=== PATIENT | female | born 1960 | race Caucasian/White ===

== ENCOUNTER 2025-06-25 13:09 | Inpatient (IN) ==
--- NOTE | 2025-06-25 13:40 | Emergency Department Note ---
History of Present Illness General Chief complaint: Weakness Stated complaint: CAN'T SUPPORT HERSELF "IT'S LIKE I'M DRUNK" Time Seen by Provider: 06/25/25 13:27 History of Present Illness This is a 64-year-old female who presents to the emergency department via private vehicle accompanied by with complaints of "weakness, cannot support self". The patient states that this is approximately the fourth time she has experienced the exact same symptoms. Most recently began this morning at 7:30 AM. She notes she cannot move her legs at all, and can barely move her head/neck. However her arms do fully work. She denies any trauma or injury. She denies any fevers, chills, nausea or vomiting. She denies any chest pain or shortness of breath. She does note recent diagnosis of diabetes about 6 months ago. She also notes history of stroke around age 51. 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 02/12/25 05/25/25 History (Dexcom G7 [place] Superintendent) lamotrigine 250 mg tablet,extended 250 mg PO BID 02/12/25 06/25/25 History release 24 hr losartan 50 mg tablet 100 mg PO DAILY 02/12/25 06/25/25 History rosuvastatin 20 mg tablet (Crestor) 0 mg PO DAILY 02/12/25 06/25/25 History insulin glargine 100 unit/mL (3 0 unit subcut QAM 02/19/25 06/25/25 History mL) subcutaneous pen (Lantus Solostar U-100 Insulin) levothyroxine 75 mcg tablet 88 mcg PO DAILY 02/19/25 06/25/25 History insulin pump cart,auto,BT,G6/7 #10 ea 04/09/25 05/25/25 Rx (Omnipod 5 G6-G7 Pods (Gen 5) subcutaneous cartridge) insulin pump cartridge,auto #1 ea 04/09/25 05/25/25 Rx dose,BT,G6/G7 with controller subcutaneous (Omnipod 5 G6-G7 Intro Kit(Gen 5) subcutaneous cartridge and controller) glucagon 1 mg/0.2 mL subcutaneous 1 mg (0.2 mL) subcut ONCE #0.4 mL 05/06/25 06/25/25 Rx auto-injector (Gvoke HypoPen 2-Pack) acetone (urine) test (Ketone Urine #100 ea 05/25/25 05/25/25 Rx Test strips) clobazam 20 mg tablet 25 mg PO HS 05/25/25 06/25/25 History insulin lispro 100 unit/mL 44 unit (0.44 mL) subcut DAILY #40 06/16/25 06/25/25 Rx subcutaneous solution (Humalog mL U-100 Insulin) insulin lispro 100 unit/mL 0 unit subcut TID 06/25/25 06/25/25 History subcutaneous half-unit pen (Humalog Jori KwikPen (U-100)) Allergies Allergy/AdvReac Type Severity Reaction Status Date / Time Sulfa (Sulfonamide Allergy Severe Anaphylaxis Verified 05/25/25 16:20 Antibiotics) Past Med/Surg History Problem List (Updated 06/25/25 @ 20:09 by Jaya Tse PA-C) Weakness (Acute) Chronic kidney disease, stage 3b Hypertension Hypothyroidism Hyperlipidemia Type 1 diabetes mellitus Social History Beliefs That Will Affect Care: [employer] Feels Safe at Home: Yes Review of Systems A total of 10 systems reviewed and were otherwise negative Physical Exam Vital Signs Vital Signs - 24 hr 06/25/25 13:14 06/25/25 13:29 06/25/25 14:00 Temperature 36.5 C Temperature Source Temporal Artery Scan Pulse Rate 69 65 Pulse Rate [Left Finger] 58 L Respiratory Rate 18 20 Respiratory Effort / Characteristics Non-Labored Respiratory Depth Normal Blood Pressure 177/96 H Blood Pressure [Left Arm] 186/92 H Blood Pressure Mean 123 Blood Pressure Mean [Left Arm] 123 Pulse Oximetry 99 99 Oxygen Delivery Method Room Air Sepsis Recent Fever Within 48 Hours No Sepsis New/Unexplained Change in Mental Status No Sepsis Action Taken by Nursing No Action Required VITAL SIGNS - Vital signs and nursing notes were reviewed. Stable and afebrile. GENERAL -64-year-old female appearing his stated age who is in no acute distress. Communicates well with provider and answers questions appropriately. SKIN - Without rashes. HEAD - NC/AT. EYES - PERRL with EOMI bilaterally. Sclera anicteric. EARS - No deformities of external structures noted on gross examination bilaterally. External auditory canals without discharge or otorrhea. Tympanic membranes pearly cao without retraction or bulging. No fluid or purulent material visualized behind the TM. Handle of malleus, umbo, cone of light, pars tensa/flaccid all easily visualized. NOSE - Midline and without cyanosis. No epistaxis or purulent drainage noted. Septum midline without deviation or septal hematoma noted. MOUTH/OROPHARYNX - Without perioral cyanosis. Buccal mucosa pink and moist and without leukoplakia. Tongue midline with equal elevation of palate bilaterally. No tonsillar hypertrophy, erythema, or exudates noted. Good dentition noted. NECK -the patient is only able to minimally actively turn the head left and right. Minimally look up and down with head tilt. No nuchal rigidity. LUNGS - Chest wall symmetric without accessory muscle use, intercostals retractions, or central cyanosis. Normal vesicular breath sounds CTA B/L. No wheezes, rales, or rhonchi appreciated. CARDIAC - RRR with S1/S2. No murmur, rubs, or gallops appreciated. ABDOMEN - Abdominal contour normal without pulsations or visible masses. BS normoactive all four quadrants. No tenderness, palpable masses, hepatosplenomegaly, or ascites noted. EXTREMITIES - No clubbing or peripheral cyanosis. Patient's extremities are appropriately warm and well-perfused. However she is not able to move the lower extremities at all. She has full range of the upper extremities. Pulses intact bilaterally. NEUROLOGIC - Cranial nerves II through XII grossly intact. PSYCH -alert, oriented and pleasant on exam Course Administered Medications Discontinued Medications Ioversol (Optiray 320 125ml) 115 ml IV ONCE ONE Stop: 06/25/25 13:48 Last Admin: 06/25/25 13:47 Dose: 115 ml Documented By: RENAE Medical Decision Making Laboratory Data 06/25/25 13:34 06/25/25 13:34 Lab Results 06/25/25 06/25/25 06/25/25 Range/Units 13:15 13:34 14:51 WBC 5.35 (4.8-10.8) K/ul RBC 5.16 (4.20-5.40) M/uL Hgb 16.0 (12.0-16.0) g/dL Hct 45.6 (37.0-47.0) % MCV 88.4 (80.0-100.0) fL MCH 31.0 (25.0-34.0) pg MCHC 35.1 (32.0-36.0) g/dL RDW Std Deviation 41.8 (36.4-46.3) fL RDW Coeff of Ramandeep 12.9 (11.5-14.5) % Plt Count 237 (130-400) K/uL MPV 8.8 L (9.4-12.4) fL Immature Gran % (Auto) 0.2 % Neut % (Auto) 45.4 % Lymph % (Auto) 46.4 % Cross % (Auto) 5.4 % Eos % (Auto) 1.7 % Baso % (Auto) 0.9 % Neut # (Auto) 2.43 (1.40-6.50) K/uL Lymph # (Auto) 2.48 (1.20-3.40) K/uL Cross # (Auto) 0.29 (0.11-0.59) K/uL Eos # (Auto) 0.09 (0.00-0.50) K/uL Baso # (Auto) 0.05 (0.00-0.20) K/uL Immature Gran # (Auto) 0.01 (0.01-0.20) K/uL PT 10.5 (9.0-12.0) Seconds INR 1.0 (0.9-1.1) APTT 31 (21-31) Seconds PTT Ratio 1.1 Sodium 140 (136-145) mmol/L Potassium 3.3 L (3.5-5.1) mmol/L Chloride 98 (98-107) mmol/L Carbon Dioxide 33 H (21-32) mmol/L Anion Gap 9 (3-11) BUN 13 (6-23) mg/dl Creatinine 1.20 (0.6-1.2) mg/dl Est Cr Clr Drug Dosing Not Reportable eGFR 50.86 BUN/Creatinine Ratio 10.8 (10-20) Glucose 119 H (70-99(Fasting)) mg/dl POC Glucose 102 H (70-99) mg/dl Calcium 9.3 (8.6-10.3) mg/dl Magnesium 2.8 H (1.7-2.4) mg/dl Total Bilirubin 0.6 (0.2-1.0) mg/dl AST 18 (13-39) U/L ALT 17 (7-52) U/L Alkaline Phosphatase 80 (34-104) U/L Troponin I High Sens 4.0 (0-14) pg/ml Total Protein 8.3 (6.0-8.3) gm/dl Albumin 5.0 (3.4-5.0) gm/dl Globulin 3.3 (2.5-4.0) gm/dl Albumin/Globulin Ratio 1.5 (0.9-2) Lipase 15 (11-82) U/L Procalcitonin < 0.02 (0-0.5) ng/ml TSH 4.092 (0.300-4.500) uIu/ml Urine Color Yellow Urine Appearance Clear (Clear) Urine pH 8.0 H (4.5-7.5) Ur Specific Everson 1.013 (1.000-1.030) Urine Protein Negative (Negative) Urine Glucose (UA) Negative (Negative) Urine Ketones Negative (Negative) Urine Blood Negative (Negative) Urine Nitrite Negative (Negative) Urine Bilirubin Negative (Negative) Urine Urobilinogen Negative (Negative) Ur Leukocyte Esterase Negative (Negative) Urine Comment Anaplasma Smear See Comment Babesia Smear See Comment Lyme Disease Screen Negative (Negative) Imaging Data Radiologist's Impression: Chest X-Ray 06/25/25 13:31 XR chest 1V portable HISTORY: 64 years-old Female weakness acute weakness COMPARISON: None TECHNIQUE: AP view of the chest FINDINGS: Cardiomediastinal and hilar silhouettes are within normal limits. No pneumothorax, pleural effusion, airspace consolidation or pulmonary edema. Bones of the chest appear grossly intact. IMPRESSION: No acute process. ACT 112: Negative or not required by law. The above report was generated using voice recognition software. It may contain grammatical, syntax or spelling errors. Electronically signed by: Adilson Saab M.D. 06/25/2025 2:[address] 06/25/25 13:38 CT head/brain wo con CLINICAL HISTORY: 64 years-old Female with neuro deficit, acute stroke suspected. Acute stroke like symptoms TECHNIQUE: Multiple axial CT images of the head were obtained without contrast. A dose lowering technique was utilized adhering to the principles of ALARA. COMPARISON: CTA head same day FINDINGS: No acute intracranial hemorrhage, midline shift, intracranial mass, hydrocephalus, territorial ischemia or abnormal extra-axial collection. Involutional changes. Large area of right MCA distribution encephalomalacia with right-sided craniotomy changes. Trace mastoid effusions. Mild mucosal thickening of the ethmoid air cells. IMPRESSION: 1. No acute intracranial abnormality. 2. 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 ACT 112: Negative or not required by law. The above report was generated using voice recognition software. It may contain grammatical, syntax or spelling errors. Electronically signed by: Adilson Saab M.D. 06/25/2025 2:11 PM Head CTA 06/25/25 13:38 CTA ANGIOGRAPHY OF THE HEAD CLINICAL HISTORY: neuro deficit, acute stroke suspected COMPARISON STUDY: No previous studies for comparison. TECHNIQUE: Helical axial images of the head were obtained following uneventful intravenous administration of 115 cc of Optiray. Sagittal and coronal reconstructions were viewed as well as maximal intensity projections on an independent 3-D workstation. Automated exposure control was utilized for the study. A dose lowering technique was utilized adhering to the principles of ALARA. CT DOSE: 927.13 mGy.cm FINDINGS: Please note that the head CT will be reported separately. No acute intracranial hemorrhage is present. A right sided craniotomy is noted with right temporal encephalomalacia. Associated dilatation of the right lateral ventricle is noted. These findings are chronic. The bilateral M1, M2, A1 and A2 segments are patent. There is moderate stenosis of the right supraclinoid ICA as well as the basilar artery. No large vessel occlusion is identified. The intracranial portions of the vertebral arteries are patent. The bilateral posterior cerebral artery are patent. There is no intracranial aneurysm. IMPRESSION: 1. No large vessel occlusion. No intracranial aneurysm. 2. Moderate stenosis of the right supraclinoid internal carotid and basilar arteries. 3. Status post right craniotomy. Right temporal lobe encephalomalacia with associated dilatation of the right lateral ventricle which is chronic. ACT 112: Negative or not required by law. Electronically signed by: Brandon Almeida M.D. 06/25/2025 2:12 PM Neck CTA 06/25/25 13:38 CT ANGIOGRAPHY OF THE NECK WITH CONTRAST CLINICAL HISTORY: neuro deficit, acute stroke suspected COMPARISON STUDY: No previous studies for comparison. Technique: CT angiography of the carotid and vertebral arteries was obtained using 115 cc Optiray and 3D reconstruction on an independent workstation. NASCET criteria was utilized. Automated exposure control was utilized for the study. A dose lowering technique was utilized adhering to the principles of ALARA. CT DOSE: Findings: The lung apices are unremarkable in appearance. No significant thyroid tissue is visualized. There is no pathologic neck adenopathy. There is an opacified right ethmoid air cell. There are postsurgical changes present within the right temporal lobe with right temporal lobe encephalomalacia There is no evidence of hemodynamically significant carotid stenosis. There is no evidence of carotid dissection. On image #[id number], hyperdense focus adjacent the medial aspect of the left vertebral artery at the C5-6 level. This is favored to represent a small osteophytic bone fragment as opposed to a short segment dissection. There is mild deformity of the vertebral at this level. Otherwise there is no evidence of vertebral artery stenosis or other findings to indicate dissection. There is a 50% stenosis of the mid basilar artery. IMPRESSION: 1. No evidence of carotid artery stenosis or dissection 2. 50% stenosis of the mid basilar artery 3. Double lumen appearance of the left vertebral artery at the C5-C6 level as visualized image #[id number]. A deformity of the vertebral artery secondary to an osteophytic fragment is favored over a short segment dissection. ACT 112: Negative or not required by law. Electronically signed by: Antwan Ivory M.D. 06/25/2025 2:20 PM MDM Narrative Patient was seen and evaluated as above in room B12b. Review was performed of nursing notes and vital signs. I did review the patient's outpatient endocrinology visit. No recent ED visits here for eval. After obtaining a thorough history and physical examination the above work up was performed. Patient presents to us today with the above symptoms. The patient is unable to move her lower extremities actively. Minimal range of head and neck actively as well. Full range of the upper extremities. Patient has history of stroke she notes around age 51. Stroke alert was called noting her deficits today although they are bilateral. CT angio head and neck with Noncon head CT also obtained, I reviewed benefit versus with the patient we will proceed. 1347: I spoke with Gregoria Mcdermott telestroke neurologist. He will evaluate the patient. He will call back with his recommendations 1414: Dr. Ward called back, cord compression or GB until proven otherwise. MRI whole spine, non contrast TODAY. Brain MRI as well. LP may be considered if needed. I did call MRI and spoke to mammography technologist to prioritize the patient. We will be able to obtain MRI of the head, C, T and L-spine today. 1427: Bladder scan performed patient retaining greater than 800 cc. Urinary retention noted. Ridley catheter will be placed. Plan at this time is medical admission. I spoke with Dr. Mccormack, hospitalist. He did asked that I speak with the spine team, I spoke with BEN Morrissey at 1503. They are willing to be on board/help if we find a spine process. Labs reveal no leukocytosis or concerning anemia. Coags normal. Mild hypokalemia 3.3. Hyperglycemia 119. Hypermagnesemia 2.8. Troponin within normal range. Lipase, Pro-Cecilio TSH normal. Urinalysis without clear evidence of infection. Anaplasma and Babesia smear negative. Lyme screen negative. Babesia DNA test pending. EKG per my interpretation reveals normal sinus rhythm at a rate of 66 bpm. QTc 461. QRS 94. No ST elevation on this rhythm tracing. GCS: 15 In the evaluation and treatment of this patient the following differential diagnoses were entertained: CVA, TIA, cord compression, gonorrhea, among others Impression & Plan Weakness Discharge Plan Visit Data Chief Complaint: Weakness Stated Complaint: CAN'T SUPPORT HERSELF "IT'S LIKE I'M DRUNK" ED Provider: Sam Cedeno ED Midlevel Provider: Jaya Tse Discharge Problem: Weakness Patient Disposition: Admitted As Inpatient Condition: Good Discharge Instructions Interventions: ED Discharge Assessment Last Done: 06/25/25 18:35
[2025-06-25 13:47] LABS: Hematocrit (blood only) 45.6 % (37.0-47.0); Hemoglobin 16.0 g/dL (12.0-16.0); Immature Granulocytes # (auto) 0.01 K/uL (0.01-0.20); Immature Granulocytes % (auto) 0.2 %; Mean Corpuscular Hemoglobin 31.0 pg (25.0-34.0); Mean Corpuscular Volume 88.4 fL (80.0-100.0); Platelet Count 237 K/uL (130-400); RDW Standard Deviation 41.8 fL (36.4-46.3); Red Blood Count 5.16 M/uL (4.20-5.40); White Blood Count 5.35 K/ul (4.8-10.8)
[2025-06-25] MEDS: OPTIRAY 320 125ml IV ONE (13:47)
[2025-06-25 14:09] LABS: Alanine Aminotransferase 17 U/L (7-52); Albumin Globulin Ratio 1.5 (0.9-2); Albumin Level 5.0 gm/dl (3.4-5.0); Alkaline Phosphatase 80 U/L (34-104); Anion Gap 9 (3-11); Bilirubin,Total 0.6 mg/dl (0.2-1.0); Blood Urea Nitrogen 13 mg/dl (6-23); Calcium 9.3 mg/dl (8.6-10.3); Carbon Dioxide 33 mmol/L (21-32); Chloride 98 mmol/L (98-107); Globulin 3.3 gm/dl (2.5-4.0); Glucose 119 mg/dl (70-99(Fasting)); Lipase 15 U/L (11-82); Magnesium 2.8 mg/dl (1.7-2.4); Potassium 3.3 mmol/L (3.5-5.1); Sodium 140 mmol/L (136-145); Total Protein 8.3 gm/dl (6.0-8.3)
[2025-06-25 14:13] LABS: Procalcitonin < 0.02 ng/ml (0-0.5)
--- NOTE | 2025-06-25 14:13 | CT Scan Report ---
CT head/brain wo con CLINICAL HISTORY: 64 years-old Female with neuro deficit, acute stroke suspected. Acute stroke like symptoms TECHNIQUE: Multiple axial CT images of the head were obtained without contrast. A dose lowering tech nique was utilized adhering to the principles of ALARA. COMPARISON: CTA head same day FINDINGS: No acute intracranial hemorrhage, midline shift, intracranial mass, hydrocephalus, territorial ischem ia or abnormal extra-axial collection. Involutional changes. Large area of right MCA distribution enc ephalomalacia with right-sided craniotomy changes. Trace mastoid effusions. Mild mucosal thickening of the ethmoid air cells. IMPRESSION: 1. No acute intracranial abnormality. 2. 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 ACT 112: Negative or not required by law. The above report was generated using voice recognition software. It may contain grammatical, syntax o r spelling errors. Electronically signed by: Adilson Saab M.D. 06/25/2025 2:11 PM
--- NOTE | 2025-06-25 14:13 | CT Scan Report ---
CTA ANGIOGRAPHY OF THE HEAD CLINICAL HISTORY: neuro deficit, acute stroke suspected COMPARISON STUDY: No previous studies for comparison. TECHNIQUE: Helical axial images of the head were obtained following uneventful intravenous administr ation of 115 cc of Optiray. Sagittal and coronal reconstructions were viewed as well as maximal inten sity projections on an independent 3-D workstation. Automated exposure control was utilized for the study. A dose lowering technique was utilized adhering to the principles of ALARA. CT DOSE: 927.13 mGy.cm FINDINGS: Please note that the head CT will be reported separately. No acute intracranial hemorrhage is present. A right sided craniotomy is noted with right temporal encephalomalacia. Associated dilata tion of the right lateral ventricle is noted. These findings are chronic. The bilateral M1, M2, A1 an d A2 segments are patent. There is moderate stenosis of the right supraclinoid ICA as well as the bas ilar artery. No large vessel occlusion is identified. The intracranial portions of the vertebral amaya stiven are patent. The bilateral posterior cerebral artery are patent. There is no intracranial aneurys m. IMPRESSION: 1. No large vessel occlusion. No intracranial aneurysm. 2. Moderate stenosis of the right supraclinoid internal carotid and basilar arteries. 3. Status post right craniotomy. Right temporal lobe encephalomalacia with associated dilatation of t he right lateral ventricle which is chronic. ACT 112: Negative or not required by law. Electronically signed by: Brandon Almeida M.D. 06/25/2025 2:12 PM
[2025-06-25 14:20] LABS: INR 1.0 (0.9-1.1); Partial Thromboplastin Time 31 Seconds (21-31); Prothrombin Time 10.5 Seconds (9.0-12.0)
--- NOTE | 2025-06-25 14:21 | CT Scan Report ---
CT ANGIOGRAPHY OF THE NECK WITH CONTRAST CLINICAL HISTORY: neuro deficit, acute stroke suspected COMPARISON STUDY: No previous studies for comparison. Technique: CT angiography of the carotid and vertebral arteries was obtained using 115 cc Optiray and 3D reconstruction on an independent workstation. NASCET criteria was utilized. Automated exposure c ontrol was utilized for the study. A dose lowering technique was utilized adhering to the principles of ALARA. CT DOSE: Findings: The lung apices are unremarkable in appearance. No significant thyroid tissue is visualized. There is no pathologic neck adenopathy. There is an opacified right ethmoid air cell. There are postsurgical changes present within the right temporal lobe with right temporal lobe enceph alomalacia There is no evidence of hemodynamically significant carotid stenosis. There is no evidence of carotid dissection. On image #[id number], hyperdense focus adjacent the medial aspect of the left vertebral art norbert at the C5-6 level. This is favored to represent a small osteophytic bone fragment as opposed to a short segment dissection. There is mild deformity of the vertebral at this level. Otherwise there is no evidence of vertebral artery stenosis or other findings to indicate dissection. There is a 50% stenosis of the mid basilar artery. IMPRESSION: 1. No evidence of carotid artery stenosis or dissection 2. 50% stenosis of the mid basilar artery 3. Double lumen appearance of the left vertebral artery at the C5-C6 level as visualized image #[id number]. A deformity of the vertebral artery secondary to an osteophytic fragment is favored over a short segment dissection. ACT 112: Negative or not required by law. Electronically signed by: Antwan Ivory M.D. 06/25/2025 2:20 PM
[2025-06-25 14:24] LABS: Thyroid Stimulating Hormone 4.092 uIu/ml (0.300-4.500)
[2025-06-25 14:38] LABS: Lyme Screen Rflx Confirmation Negative (Negative)
--- NOTE | 2025-06-25 14:53 | XRay Report ---
XR chest 1V portable HISTORY: 64 years-old Female weakness acute weakness COMPARISON: None TECHNIQUE: AP view of the chest FINDINGS: Cardiomediastinal and hilar silhouettes are within normal limits. No pneumothorax, pleural effusion, airspace consolidation or pulmonary edema. Bones of the chest appear grossly intact. IMPRESSION: No acute process. ACT 112: Negative or not required by law. The above report was generated using voice recognition software. It may contain grammatical, syntax o r spelling errors. Electronically signed by: Adilson Saab M.D. 06/25/2025 2:52 PM
[2025-06-25 15:07] LABS: Appearance Urine Clear (Clear); Glucose Urine UA Negative (Negative)
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
--- NOTE | 2025-06-25 15:33 | Electrocardiogram Report ---
Test Reason : Blood Pressure : */* mmHG Vent. Rate : 66 BPM Atrial Rate : 66 BPM P-R Int : 164 ms QRS Dur : 94 ms QT Int : 440 ms P-R-T Axes : 79 85 67 degrees QTcB Int : 461 ms Normal sinus rhythm Possible Left atrial enlargement Septal infarct , age undetermined Abnormal ECG No previous ECGs available Confirmed by Rolando King ([id number]) on 06/25/2025 3:33:07 PM Referred By: Confirmed By: Rolando King
[2025-06-25] MEDS ORDERED: PHARMACY GLYCEMIC MGMT CONSULT PRN (15:43)
[2025-06-25] MEDS ORDERED: ZOLPIDEM TARTRATE 5 MG TAB PO PRN (19:11)
[2025-06-25] MEDS ORDERED: ALUMINUM/MAGNESIUM SUSP 30 ML UDC PO PRN (19:11)
[2025-06-25] MEDS ORDERED: ONDANSETRON INJ 2 MG/ML 2 ML VIAL IV PRN (19:11)
[2025-06-25] MEDS ORDERED: ACETAMINOPHEN 325 MG TAB PO PRN (19:11)
--- NOTE | 2025-06-25 20:19 | Magnetic Resonance Report ---
Exam(s): MRI L SPINE Without Contrast EXAM: MR Lumbar Spine Without Intravenous Contrast CLINICAL HISTORY: Reason for exam: cannot move head, neck or legs, weakness. TECHNIQUE: Magnetic resonance images of the lumbar spine without intravenous contrast in multiple planes. COMPARISON: No relevant prior studies available. FINDINGS: There is normal lumbar lordosis and vertebral body height. There is no acute fracture or traumatic subluxation. There is no discitis. Small benign intraosseous hemangiomas are noted at the L1, L2, and L3 levels. Conus medullaris terminates opposite L1 and is normal in caliber and signal. There is multilevel disc desiccation and disc degeneration with disc height loss greatest at the L4-L5 level. There is multilevel facet degeneration. L1-L2: Mild disc degeneration. Facet degeneration. No spinal canal stenosis. No significant foraminal narrowing. L2-L3: Mild disc degeneration. Marked facet degeneration with ligamentum flavum thickening. Grade 1 anterolisthesis of L2 measuring 3 mm. Moderate spinal canal stenosis with narrowing of the lateral recesses and disc material abutting the bilateral traversing L3 nerve roots. Severe left and [id number] right foraminal narrowing. L3-L4: Mild disc degeneration. Marked facet degeneration. Mild canal stenosis with narrowing of the lateral recesses and disc material abutting the traversing bilateral L4 nerve roots. Severe bilateral foraminal narrowing, right worse than left. L4-L5: Moderate disc degeneration. Disc bulging. Marked facet degeneration. No significant spinal canal stenosis. Moderate bilateral foraminal narrowing. L5-S1: Mild disc degeneration. Facet degeneration. No spinal canal stenosis. Mild bilateral foraminal narrowing. Sacroiliac joints are normally aligned. Paravertebral soft tissues are unremarkable. IMPRESSION: 1. Multilevel degenerative changes without acute osseous abnormality. 2. Varying degrees of spinal canal stenosis, moderate at L2-L3. 3. Severe left foraminal narrowing L2-L3, severe bilateral foraminal narrowing L3-L4, moderate bilateral foraminal narrowing L4-L5. 4. Additional uricy-rj-[id number] findings as noted above. Electronically signed by: Kim Us M.D. 06/25/25 20:18 PM
[2025-06-25] MEDS ORDERED: GLUCOSE 10 TAB/TUBE PO PRN (20:45)
[2025-06-25] MEDS ORDERED: GLUCAGON FOR INJ 1 MG VIAL SQ PRN (20:45)
[2025-06-25] MEDS ORDERED: DEXTROSE 50% 50 ML SYRINGE IV PRN (20:45)
[2025-06-25] MEDS ORDERED: GLUCOSE 40% GEL 15 GM TUBE PO PRN (20:45)
[2025-06-25] MEDS ORDERED: LANTUS PER UNIT CHARGE SQ SCH (21:00)
--- NOTE | 2025-06-25 21:29 | Magnetic Resonance Report ---
Exam(s): MRI T SPINE Without Contrast EXAM: MR Thoracic Spine Without Intravenous Contrast CLINICAL HISTORY: Reason for exam: cannot move head, neck or legs, weakness. TECHNIQUE: Magnetic resonance images of the thoracic spine without intravenous contrast in multiple planes. COMPARISON: No relevant prior studies available. FINDINGS: Vertebrae: Unremarkable. No acute fracture. Discs/spinal canal/neural foramina: No acute findings. No significant disc disease. No spinal canal stenosis. Spinal cord: Unremarkable. Normal signal. Soft tissues: Unremarkable. IMPRESSION: Unremarkable thoracic spine MRI. Electronically signed by: Kim Us M.D. 06/25/25 21:28 PM
--- NOTE | 2025-06-25 21:46 | Magnetic Resonance Report ---
Exam(s): MRI HEAD Without Contrast EXAM: MR Head Without Intravenous Contrast CLINICAL HISTORY: Reason for exam: cannot move head, neck or legs, weakness. TECHNIQUE: Magnetic resonance images of the head/brain without intravenous contrast in multiple planes. COMPARISON: CT, CTA 06/25/2025 FINDINGS: There is a right-sided craniotomy with resection cavity in the right temporal lobe and surrounding gliosis, associated with ex vacuo enlargement of the right lateral ventricle. There is no mass effect or midline shift. There is no diffusion restriction to suggest acute cerebral ischemia. There are no significant chronic small-vessel ischemic changes. There is no evidence of acute intracranial hemorrhage. There is no hydrocephalus. There is mucosal thickening within the posterior right ethmoids. Sinuses and mastoids are otherwise unremarkable. IMPRESSION: No acute intracranial findings. Electronically signed by: Kim Us M.D. 06/25/25 21:44 PM
[2025-06-25] MEDS: [UNRECOGNIZED DRUG - REMARK] ONE (21:58)
[2025-06-25 22:04] LABS: Hematocrit (blood only) 44.1 % (37.0-47.0); Hemoglobin 15.6 g/dL (12.0-16.0); Mean Corpuscular Hemoglobin 31.1 pg (25.0-34.0); Mean Corpuscular Volume 87.8 fL (80.0-100.0); Platelet Count 243 K/uL (130-400); RDW Standard Deviation 41.4 fL (36.4-46.3); Red Blood Count 5.02 M/uL (4.20-5.40); White Blood Count 5.91 K/ul (4.8-10.8)
[2025-06-25 22:23] LABS: Alanine Aminotransferase 16.0 U/L (7-52); Albumin Globulin Ratio 1.3 (0.9-2); Albumin Level 4.4 gm/dl (3.4-5.0); Alkaline Phosphatase 80.0 U/L (34-104); Anion Gap 8.0 (3-11); Bilirubin,Total 0.5 mg/dl (0.2-1.0); Blood Urea Nitrogen 16.0 mg/dl (6-23); Calcium 9.2 mg/dl (8.6-10.3); Carbon Dioxide 33.0 mmol/L (21-32); Chloride 97.0 mmol/L (98-107); Creatinine Clr Calc Pharmacy 30.6 ml/min; Globulin 3.5 gm/dl (2.5-4.0); Glucose 153.0 mg/dl (70-99(Fasting)); Potassium 3.1 mmol/L (3.5-5.1); Sodium 138.0 mmol/L (136-145); Total Protein 7.9 gm/dl (6.0-8.3)
[2025-06-25] MEDS: SODIUM CHLORIDE 0.9% 1,000 ML IV SCH (22:38)
[2025-06-25] MEDS: LANTUS PER UNIT CHARGE SC SCH (22:39)
[2025-06-25] MEDS: INSULIN ASPART PER UNIT CHARGE SC SCH (22:40)
[2025-06-25 22:50] LABS: Folate (Folic Acid),Ser orPlas 19.18 ng/ml (>5.38)
[2025-06-25 22:51] LABS: Vitamin B12 708.0 pg/ml (180-914)
--- NOTE | 2025-06-25 22:51 | Magnetic Resonance Report ---
Exam(s): MRI C SPINE EXAM: MR Cervical Spine Without Intravenous Contrast CLINICAL HISTORY: Reason for exam: cannot move head, neck or legs, weakness. TECHNIQUE: Magnetic resonance images of the cervical spine without intravenous contrast in multiple planes. COMPARISON: Prior CT angiogram of the neck from June 25 2025. FINDINGS: This study is limited secondary to motion artifact. Vertebrae: There are 7 cervical type vertebral bodies with a mild generalized curved to the right and straightening normal cervical lordosis. There is normal vertebral body height and alignment. The bone marrow signal is heterogeneous with reactive endplate changes. No acute fracture. There is narrowing of the spinal canal secondary to congenitally short pedicles. There is mild to advanced facet arthropathy with mild to moderate synovitis, most significant at the left C3-4 facet joint. Spinal cord: There is flattening the ventral cord at C3-4, C4-5, C5-6 and C6-7 with focal area of myelomalacia at C5-6 without evidence of cord edema. Soft tissues: The cervical flow voids are intact. DISCS/SPINAL CANAL/NEURAL FORAMINA: C2-C3: The intervertebral disc is normal. C3-C4: There is mild disc degeneration with annular disc bulge flattening the ventral cord without evidence of abnormal cord signal and causing a severe spinal canal stenosis with AP diameter measuring 7.1 mm. C4-C5: Moderate disc degeneration with annular disc bulge flattening the ventral cord without evidence of abnormal cord signal and causing a critical spinal canal stenosis with AP diameter measuring 6.1 mm. C5-C6: Advanced disc degeneration with annular disc bulge flattening the ventral cord with focal areas of myelomalacia a causing a critical spinal canal stenosis with AP diameter measuring 5.6 mm. C6-C7: Advanced disc degeneration with annular disc bulge flattening the ventral cord without evidence of cord signal and causing a critical spinal canal stenosis with AP diameter 6.6 mm. C7-T1: The intervertebral disc is normal. IMPRESSION: 1. Advanced disc degeneration at C5-6, C6-7: Moderate disc degeneration at C4-5 and mild disc degeneration at C3-4 with annular disc bulging flattening the ventral cord with areas of focal myelomalacia at C5-6. No evidence of cord edema. 2. There is a critical spinal canal stenosis at C4-5, C5-6 and C6-7 and severe stenosis at C3-4 with a congenitally narrow spinal canal. 3. The neural foramina are poorly visualized secondary to motion artifact. 4. There is mild to advanced facet arthropathy with mild to moderate synovitis, most significant at the left C3-4 facet joint. 5. No evidence of fracture, infection, tumor or arachnoiditis. Electronically signed by: Qing Fair MD 06/25/25 22:50 PM
[2025-06-25] MEDS: cloBAZam 5 MG TAB PO ONE (23:45)
[2025-06-26] MEDS: LEVOTHYROXINE SODIUM 88 MCG TABLET PO SCH (05:52)
[2025-06-26 08:34] LABS: Hematocrit (blood only) 43.1 % (37.0-47.0); Hemoglobin 15.0 g/dL (12.0-16.0); Mean Corpuscular Hemoglobin 30.9 pg (25.0-34.0); Mean Corpuscular Volume 88.7 fL (80.0-100.0); Platelet Count 219 K/uL (130-400); RDW Standard Deviation 42.3 fL (36.4-46.3); Red Blood Count 4.86 M/uL (4.20-5.40); White Blood Count 4.76 K/ul (4.8-10.8)
[2025-06-26] MEDS: ROSUVASTATIN CALCIUM 20 MG TAB PO SCH (08:48)
[2025-06-26] MEDS: LOSARTAN POTASSIUM 50 MG TAB PO SCH (08:48)
[2025-06-26 08:53] LABS: Alanine Aminotransferase 15.0 U/L (7-52); Albumin Globulin Ratio 1.5 (0.9-2); Albumin Level 4.5 gm/dl (3.4-5.0); Alkaline Phosphatase 73.0 U/L (34-104); Anion Gap 5.0 (3-11); Bilirubin,Total 0.6 mg/dl (0.2-1.0); Blood Urea Nitrogen 14.0 mg/dl (6-23); Calcium 8.7 mg/dl (8.6-10.3); Carbon Dioxide 34.0 mmol/L (21-32); Chloride 98.0 mmol/L (98-107); Creatinine Clr Calc Pharmacy 38.3 ml/min; Globulin 3.0 gm/dl (2.5-4.0); Glucose 135.0 mg/dl (70-99(Fasting)); Potassium 3.2 mmol/L (3.5-5.1); Sodium 137.0 mmol/L (136-145); Total Protein 7.5 gm/dl (6.0-8.3)
[2025-06-26] MEDS: POLYETHYLENE (MIRALAX) 17 GM PACK PO PRN (08:53)
--- NOTE | 2025-06-26 10:00 | Hospitalist Progress Note ---
Date of Service June 26, 2025 Assessment & Plan (1) Type 1 diabetes mellitus: (2) Hyperlipidemia: (3) Hypothyroidism: (4) Weakness: Plan 64 female diabetes CVA Hypothyroidism hypertension Hyperlipidemia CKD Right- sided craniotomy/lobotomy reportedly for history epilepsy? who presents with complaints of inability to support her self and weakness of legs as well as head and neck with inability to support self. She has experienced this Multiple times over the past few months and it seems has not seek medical attention with most recent episode being in the morning prior to arrival to ED. No arm weakness Numbness tingling lightheadedness vision change. No fevers chills manfred st pain shortness of breath recent illness abdominal pain diarrhea or other symptoms. No trauma. Noted to be retaining 800 cc of urine in ED Ridley placed. Bilateral lower extremity and head and neck weakness rule out cord compression, rule out Crosby Bates (Although the latter would be an ascending process) Neurochecks Supportive care CTA head and neck with moderate stenosis internal carotid and basilar TFTs WNL Tick panel NTD B12 folate wnl MRI brain Unrevealing Ritchie MRI Spine Critical Cervical and lumbar stenosis May need LP Follow neurology input PT OT Urinary retention in setting of the above Ridley inserted in ED on 06/25. Voiding trial PTD Diabetes Short and long-acting insulin. Pharmacy managing Hypothyroidism Levothyroxine Hypertension Continue home medications History epilepsy c/w home AED DVT prophylaxis Full code Disposition admission anticipate at least 48 hours hospitalization Admission and Anticipated Discharge Date Admission Date: June 25, 2025 Review of Systems Constitutional: Negative except as in HPI Physical Exam Physical Exam: VITAL SIGNS - Vital signs and nursing notes were reviewed. Stable and afebrile. GENERAL -64-year-old female appearing his stated age who is in no acute distress. Communicates well with provider and answers questions appropriately. SKIN - Without rashes. HEAD - NC/AT. EYES - PERRL with EOMI bilaterally. Sclera anicteric. EARS - No deformities of external structures noted on gross examination bilaterally. External auditory canals without discharge or otorrhea. Tympanic membranes pearly cao without retraction or bulging. No fluid or purulent material visualized behind the TM. Handle of malleus, umbo, cone of light, pars tensa/flaccid all easily visualized. NOSE - Midline and without cyanosis. No epistaxis or purulent drainage noted. Septum midline without deviation or septal hematoma noted. MOUTH/OROPHARYNX - Without perioral cyanosis. Buccal mucosa pink and moist and without leukoplakia. Tongue midline with equal elevation of palate bilaterally. No tonsillar hypertrophy, erythema, or exudates noted. Good dentition noted. NECK -the patient is only able to minimally actively turn the head left and right. Minimally look up and down with head tilt. No nuchal rigidity. LUNGS - Chest wall symmetric without accessory muscle use, intercostals retractions, or central cyanosis. Normal vesicular breath sounds CTA B/L. No wheezes, rales, or rhonchi appreciated. CARDIAC - RRR with S1/S2. No murmur, rubs, or gallops appreciated. ABDOMEN - Abdominal contour normal without pulsations or visible masses. BS normoactive all four quadrants. No tenderness, palpable masses, hepatosplenomegaly, or ascites noted. EXTREMITIES - No clubbing or peripheral cyanosis. Patient's extremities are appropriately warm and well-perfused. However she is not able to move the lower extremities at all. She has full range of the upper extremities. Pulses intact bilaterally. NEUROLOGIC - Cranial nerves II through XII grossly intact. PSYCH -alert, oriented and pleasant on exam Results & Data Results & Data Vital Signs (Past 12 Hours) Vital Signs Temp Pulse Pulse Resp BP Pulse Ox O2 Del Method 06/26/25 07:15 60 06/26/25 03:42 36.7 C 60 16 120/72 98 Room Air 06/25/25 23:10 36.8 C 68 18 136/85 97 Room Air PG Care Time/CCT Total # of Minutes Spent Total Time Spent with Patient: Total time spent is greater than 50% in coordination of care (as documented) at patient's floor/unit and/or counseling patient: Coding Level of Care Code 41204 SUB INP/OBS CARE 2MIN Diagnoses Type 1 diabetes mellitus without complication E10.9 Diabetes mellitus complication status: without complication Mixed hyperlipidemia E78.2 Hyperlipidemia type: mixed hyperlipidemia Postoperative hypothyroidism E89.0 Hypothyroidism type: postoperative Weakness R53.1 (1) Type 1 diabetes mellitus Diabetes mellitus complication status: without complication Qualified Code(s): E10.9 - Type 1 diabetes mellitus without complications (2) Hyperlipidemia Hyperlipidemia type: mixed hyperlipidemia Qualified Code(s): E78.2 - Mixed hyperlipidemia (3) Hypothyroidism Hypothyroidism type: postoperative Qualified Code(s): E89.0 - Postprocedural hypothyroidism
[2025-06-26] MEDS: POTASSIUM CHLORIDE CRTAB 20 MEQ TABCR PO STA (10:23)
--- NOTE | 2025-06-26 10:48 | Neurology Consultation ---
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 Lumbar Spine MRI 06/25/25 14:19 Exam(s): MRI L SPINE Without Contrast EXAM: MR Lumbar Spine Without Intravenous Contrast CLINICAL HISTORY: Reason for exam: cannot move head, neck or legs, weakness. TECHNIQUE: Magnetic resonance images of the lumbar spine without intravenous contrast in multiple planes. COMPARISON: No relevant prior studies available. FINDINGS: There is normal lumbar lordosis and vertebral body height. There is no acute fracture or traumatic subluxation. There is no discitis. Small benign intraosseous hemangiomas are noted at the L1, L2, and L3 levels. Conus medullaris terminates opposite L1 and is normal in caliber and signal. There is multilevel disc desiccation and disc degeneration with disc height loss greatest at the L4-L5 level. There is multilevel facet degeneration. L1-L2: Mild disc degeneration. Facet degeneration. No spinal canal stenosis. No significant foraminal narrowing. L2-L3: Mild disc degeneration. Marked facet degeneration with ligamentum flavum thickening. Grade 1 anterolisthesis of L2 measuring 3 mm. Moderate spinal canal stenosis with narrowing of the lateral recesses and disc material abutting the bilateral traversing L3 nerve roots. Severe left and [id number] right foraminal narrowing. L3-L4: Mild disc degeneration. Marked facet degeneration. Mild canal stenosis with narrowing of the lateral recesses and disc material abutting the traversing bilateral L4 nerve roots. Severe bilateral foraminal narrowing, right worse than left. L4-L5: Moderate disc degeneration. Disc bulging. Marked facet degeneration. No significant spinal canal stenosis. Moderate bilateral foraminal narrowing. L5-S1: Mild disc degeneration. Facet degeneration. No spinal canal stenosis. Mild bilateral foraminal narrowing. Sacroiliac joints are normally aligned. Paravertebral soft tissues are unremarkable. IMPRESSION: 1. Multilevel degenerative changes without acute osseous abnormality. 2. Varying degrees of spinal canal stenosis, moderate at L2-L3. 3. Severe left foraminal narrowing L2-L3, severe bilateral foraminal narrowing L3-L4, moderate bilateral foraminal narrowing L4-L5. 4. Additional nsros-bb-domor findings as noted above. Electronically signed by: Kim Us M.D. 06/25/25 20:18 PM Thoracic Spine MRI 06/25/25 14:19 Exam(s): MRI T SPINE Without Contrast EXAM: MR Thoracic Spine Without Intravenous Contrast CLINICAL HISTORY: Reason for exam: cannot move head, neck or legs, weakness. TECHNIQUE: Magnetic resonance images of the thoracic spine without intravenous contrast in multiple planes. COMPARISON: No relevant prior studies available. FINDINGS: Vertebrae: Unremarkable. No acute fracture. Discs/spinal canal/neural foramina: No acute findings. No significant disc disease. No spinal canal stenosis. Spinal cord: Unremarkable. Normal signal. Soft tissues: Unremarkable. IMPRESSION: Unremarkable thoracic spine MRI. Electronically signed by: Kim Us M.D. 06/25/25 21:28 PM Medications Administered Home Medications Medication Instructions Recorded Confirmed Last Taken amlodipine 2.5 mg tablet 2.5 mg PO DAILY 02/12/25 06/25/25 Unknown aspirin 81 mg tablet 81 mg PO DAILY 02/12/25 06/25/25 Unknown blood-glucose sensor (Dexcom G7 02/12/25 05/25/25 Unknown Sensor device) blood-glucose,care mgr,cont 02/12/25 05/25/25 Unknown (Dexcom G7 Account Processor) lamotrigine 250 mg tablet,extended 250 mg PO BID 02/12/25 06/25/25 Unknown release 24 hr losartan 50 mg tablet 100 mg PO DAILY 02/12/25 06/25/25 Unknown rosuvastatin 20 mg tablet (Crestor) 0 mg PO DAILY 02/12/25 06/25/25 Unknown insulin glargine 100 unit/mL (3 0 unit subcut QAM 02/19/25 06/25/25 Unknown mL) subcutaneous pen (Lantus Solostar U-100 Insulin) levothyroxine 75 mcg tablet 88 mcg PO DAILY 02/19/25 06/25/25 Unknown insulin pump cart,auto,BT,G6/7 #10 ea 04/09/25 05/25/25 Unknown (Omnipod 5 G6-G7 Pods (Gen 5) subcutaneous cartridge) insulin pump cartridge,auto #1 ea 04/09/25 05/25/25 Unknown dose,BT,G6/G7 with controller subcutaneous (Omnipod 5 G6-G7 Intro Kit(Gen 5) subcutaneous cartridge and controller) glucagon 1 mg/0.2 mL subcutaneous 1 mg (0.2 mL) subcut ONCE #0.4 mL 05/06/25 06/25/25 Unknown auto-injector (GvQuandoo HypoPen 2-Pack) acetone (urine) test (Ketone Urine #100 ea 05/25/25 05/25/25 Unknown Test strips) clobazam 20 mg tablet 25 mg PO HS 05/25/25 06/25/25 Unknown insulin lispro 100 unit/mL 44 unit (0.44 mL) subcut DAILY #40 06/16/25 06/25/25 Unknown subcutaneous solution (Humalog mL U-100 Insulin) insulin lispro 100 unit/mL 0 unit subcut TID 06/25/25 06/25/25 Unknown subcutaneous half-unit pen (Humalog Jori GianaPen (U-100)) Active Medications Generic Name Dose Route Start Last Admin Trade Name Freq PRN Reason Stop Dose Admin Sodium Chloride 1,000 mls @ 75 mls/hr 06/25/25 19:11 06/25/25 22:38 Nss IV 06/28/25 19:10 75 mls/hr .[id number] ARIANA Administration Insulin Aspart 0 units 06/25/25 21:00 06/26/25 09:11 Insulin Aspart Per Unit Charge SC 07/25/25 20:59 Not Given ACHS ARIANA Insulin Glargine 0 units 06/25/25 21:00 06/25/25 22:39 Lantus Per Unit Charge SC 07/25/25 20:59 6 units HS ARIANA Administration Protocol Levothyroxine Sodium 88 mcg 06/26/25 06:30 06/26/25 05:52 Levothyroxine Sodium 88 Mcg Tablet PO 07/26/25 06:29 Not Given DAILYBB ARIANA Losartan Potassium 100 mg 06/26/25 09:00 06/26/25 08:48 Losartan Potassium 50 Mg Tab PO 07/26/25 08:59 100 mg DAILY ARIANA Administration Lamotrigine 250mg Er 1 each 06/25/25 23:00 06/26/25 08:48 - Patient's Own Med PO 07/25/25 22:59 1 cap BID ARIANA Administration Polyethylene Glycol 17 gm 06/25/25 19:11 06/26/25 08:53 Polyethylene (Miralax) 17 Gm Pack PO 07/25/25 19:10 17 gm DAILY PRN Administration Constipation Rosuvastatin Calcium 20 mg 06/26/25 09:00 06/26/25 08:48 Rosuvastatin Calcium 20 Mg Tab PO 07/26/25 08:59 20 mg DAILY ARIANA Administration (8) Hypothyroidism Hypothyroidism type: postoperative Qualified Code(s): E89.0 - Postprocedural hypothyroidism (9) Hyperlipidemia Hyperlipidemia type: mixed hyperlipidemia Qualified Code(s): E78.2 - Mixed hyperlipidemia (10) Type 1 diabetes mellitus Diabetes mellitus complication status: without complication Qualified Code(s): E10.9 - Type 1 diabetes mellitus without complications
--- NOTE | 2025-06-26 11:56 | Orthopedic Consultation ---
Date of Service June 26, 2025 Assessment & Plan (1) Cervical cord myelomalacia: (2) Cervical stenosis of spine: (3) Lumbar stenosis: (4) Lower extremity weakness: Plan * Case/imaging reviewed and discussed with Dr Cobb who was present for bedside evaluation and discussion with patient * MRI cervical spine reviewed, myelomalacia at C5-6 noted but this does not explain her lower extremity weakness or lack of head/neck flexion. No sensory nerve changes or weakness of bilateral upper extremity * MRI lumbar spine reviewed, multilevel degenerative changes and stenosis noted. * Extensive discussion by Dr. Cobb and patient bedside. MRI C-spine does not explain her symptoms head/neck, MRI lumbar spine also does not explain lower extremity weakness * Regarding urinary retention, per patient report this seems to be per her baseline * At this point no urgent surgical decompression is indicated * Recommend continued workup with neurology, consult pending * Weight bearing status: Weightbearing/activity as tolerated * Daily treatment: Physical Therapy/ Occupational Therapy per protocol * Pain control * Disposition: TBD * Remainder care per primary team * Will certainly continue to follow * * Patient seen and examined, lengthy discussion ensued with both the patient and also later family members. This included review of the cervical MRI showing myelomalacia but no edema in the cord, at the C5-6 level, significant stenosis at adjacent levels. I related to the patient that though the cervical spine certainly could be causing some of the symptoms, not all symptoms would be associated with all the findings on the cervical MRI. Lumbar MRI reveals some to just degenerative changes but no significant stenosis outside of some left foraminal stenosis at L2-3 due to a disc protrusion. At this time I related that surgical intervention could be considered in an effort to relieve any stenosis of the cervical spine relative to what might be causing some of the lower extremity symptoms which apparently do occur intermittently with improvement days later, this is verified with the additional family members which arrived. I related that the options either include continue monitoring, some medication management versus operative intervention which I think would need to be performed at all 3 levels due to the amount of central stenosis. After lengthy discussion and review of the imaging studies, it was decided by the patient and family members to move ahead with the surgery which would be a three-level anterior cervical decompression and fusion with interbody grafts and fixation at C4-5 C5-6 and C6-7. The nature of the procedure, hospital postoperative course, potential risk complications were all discussed with the patient and family member, this included discussion the fact that not all symptoms may resolve with the surgical procedure, they are in agreement with this plan. Update: Case discussed extensively with Neurology team. Repeat examination with Dr Reza barker. Again attempted to get history. Reports that this bout of symptoms started yesterday morning. Most recent episode was earlier this week but improved and she was able to ambulate and go shopping. Reports that symptoms improve after "her holds her in a standing position or helps her to stand up" and she gradually regains her strength. Now, she is fully supine and has improved AROM of her toes but still unable to move legs. Is able to flex n marcel forward and extend neck back against the bed. States that in the past her "body" or torso was weak and floppy, but this is the first time she has had weakness like this in the lower extremities. Regarding urinary retention, has had issues as far back as the early 2001's, but similar to her other symptoms it is itermittent, and earlier this week was not having problems. Has been seen at [facility] in the past, had MRIs which she states were normal. Reports she has had back pain in the past after walking on an sloped road, back in , and was noted to have spinal stenosis at that time. Improved with PT/chiropractor. Discussed degenerative lumbar findings; would explain low back pain but not her extensive weakness. Discussed thoracic spine MRI, no acute findings. Discussed cervical spine findings; Chronic appearing compression/myelomalacia but no acute cord edema. Discussed overall clinical picture: with imaging findings would certainly consider surgical decompression and fusion, however they do not correlate with her profound lower extremity weakness or neck weakness. Discussed ACDF as surgical option, patient is anxious regarding surgical intervention and is not ready to commit at the time of our discussion. Relayed that if this is a true acute cord compression that we would not expect her symptoms to improve and would not delay her decision by more than 1-2 days. In the mean time will obtain c-spine XR. Patient to think about ACDF vs disc arthroplasty, potentially tomorrow vs Saturday. Update 2: Returned to bedside for further discussion with patient and additional family. Discussed indications for ACDF. Patient and family now on board to proceed with surgery. History of Present Illness Reason for Consultation: Head, neck, bilateral lower extremity weakness Requesting Physician: . Attending Physician: Simi Mccormack MD .Patient is a 64y/o female with head/neck weakness, bilateral lower extremity weakness. PMH including diabetes CVA Hypothyroidism hypertension Hyperlipidemia CKD Right-sided temporal lobotomy reportedly for history epilepsy. Presents to hospital with weakness of legs as well as head and neck with inability to support self, urinary retention. Patient reports that she will intermittently get the symptoms where she will attempt to get out of bed and not have any strength or control of her lower extremities and will be unable to stand. She reports this has happened several times but is unable to provide a great timeline secondary to "short-term memory issues". May last hours to days. States that she has been having urinary retention issues since approximately 2000 when she began having seizures. At time of presentation patient reporting she cannot move her legs at all, and is having difficulty moving the head and neck however at a time of exam she is able to turn from [id number] but appears to have difficulty lifting her head from the pillow. Current workup including MRI cervical/thoracic/lumbar spine (findings detailed below), MRI brain, head and neck CTA. Admitted to hospital medicine team for further workup. Ortho- spine consulted for management recommendations. At time of exam patient sitting upright in bed, head propped up on pillows, no acute distress. Reports weakness while lifting her head, total weakness of her bilateral lower extremities. Denies any tingling/numbness of bilateral lower extremity, bilateral upper extremity. Denies saddle anesthesia. Regarding bowel/bladder function, reports that she has been having ongoing retention issues for many years and will r outinely have to massage her bladder in order to urinate. When not suffering from one of the symptom flares she ambulates without assistance. Reports that she works with PT and a chiropractor outpatient. Denies any falls, trauma, or other injury preceding the onset of the symptoms. Allergies Allergy/AdvReac Type Severity Reaction Status Date / Time Sulfa (Sulfonamide Allergy Severe Anaphylaxis Verified 05/25/25 16:20 Antibiotics) 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,recreational director,cont 02/12/25 05/25/25 History (Dexcom G7 Industrial Equipment Wirer) lamotrigine 250 mg tablet,extended 250 mg PO BID 02/12/25 06/25/25 History release 24 hr losartan 50 mg tablet 100 mg PO DAILY 02/12/25 06/25/25 History rosuvastatin 20 mg tablet (Crestor) 0 mg PO DAILY 02/12/25 06/25/25 History insulin glargine 100 unit/mL (3 0 unit subcut QAM 02/19/25 06/25/25 History mL) subcutaneous pen (Lantus Solostar U-100 Insulin) levothyroxine 75 mcg tablet 88 mcg PO DAILY 02/19/25 06/25/25 History insulin pump cart,auto,BT,G6/7 #10 ea 04/09/25 05/25/25 Rx (Omnipod 5 G6-G7 Pods (Gen 5) subcutaneous cartridge) insulin pump cartridge,auto #1 ea 04/09/25 05/25/25 Rx dose,BT,G6/G7 with controller subcutaneous (Omnipod 5 G6-G7 Intro Kit(Gen 5) subcutaneous cartridge and controller) glucagon 1 mg/0.2 mL subcutaneous 1 mg (0.2 mL) subcut ONCE #0.4 mL 05/06/25 06/25/25 Rx auto-injector (Gvoke HypoPen 2-Pack) acetone (urine) test (Ketone Urine #100 ea 05/25/25 05/25/25 Rx Test strips) clobazam 20 mg tablet 25 mg PO HS 05/25/25 06/25/25 History insulin lispro 100 unit/mL 44 unit (0.44 mL) subcut DAILY #40 06/16/25 06/25/25 Rx subcutaneous solution (Humalog mL U-100 Insulin) insulin lispro 100 unit/mL 0 unit subcut TID 06/25/25 06/25/25 History subcutaneous half-unit pen (Humalog Jori KwikPen (U-100)) Past Med/Surg History Problem List (Updated 06/26/25 @ 12:03 by Severiano Morrissey PA-C) Lower extremity weakness Lumbar stenosis Cervical stenosis of spine Cervical cord myelomalacia Weakness (Acute) Chronic kidney disease, stage 3b Hypertension Hypothyroidism Hyperlipidemia Type 1 diabetes mellitus Social History Smoking Status: Unknown if ever smoked Hx Alcohol Use: No Hx Substance Use: No Preferred Language: Pakistani Communication Ability: Effective 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 Physical Exam * General: Alert and oriented, no acute distress * Constitutional: well-developed, well-nourished. * Respiratory: Normal respiratory effort, no distress * Gastrointestinal: No tenderness to palpation, no rigidity or guarding. * Skin: No rash or lesion. * Neurologic: Grossly normal * Musculoskeletal: - Upper extremity: Bilateral upper extremity, cervical region, without obvious deformity or overlying skin changes. No TTP midline cervical spine, upper traps, or bilateral upper arm, elbow, forearm, wrist/hand. Cervical AROM unable to flex neck, but can rotate [id number] without assistance. AROM shoulder shrug, shoulder flexion, elbow flexion, wrist flexion/extension, instrument and electrical technician strength intact bilaterally 5/5. Sensation intact throughout the upper trap/shoulder region, lateral upper arm, radial/median/ulnar nerve dist ributions. Brisk capillary refill. - Lower extremity: Bilateral lower extremity and lumbar region without obvious deformity or overlying skin changes. No TTP midline lumbar spine or paraspinals, gluteal region, bilateral thigh, lower leg, foot/ankle. AROM lumbar flexion and rotation motions intact. Slight AROM toe wiggle bilaterally, but otherwise no AROM of bilateral hip flexion, knee extension, EHL extension, plantarflexion. Trace right patellar reflex, no hyperreflexia on left. However sensation is intact throughout the lower extremities including medial and lateral thigh, saddle region, medial and lateral lower leg, dorsal/plantar foot. Brisk capillary refill Results & Data Results & Data Laboratory Results . 06/26/25 06/26/25 06/26/25 11:27 07:54 07:24 WBC 4.76 L RBC 4.86 Hgb 15.0 Hct 43.1 MCV 88.7 MCH 30.9 MCHC 34.8 RDW Std Deviation 42.3 RDW Coeff of Ramandeep 12.9 Plt Count 219 MPV 8.8 L Immature Gran % (Auto) Neut % (Auto) Lymph % (Auto) Wise % (Auto) Eos % (Auto) Baso % (Auto) Neut # (Auto) Lymph # (Auto) Wise # (Auto) Eos # (Auto) Baso # (Auto) Immature Gran # (Auto) PT INR APTT PTT Ratio Sodium 137 Potassium 3.2 L Chloride 98 Carbon Dioxide 34 H Anion Gap 5 BUN 14 Creatinine 1.08 Est Cr Clr Drug Dosing 38.3 eGFR 57.72 BUN/Creatinine Ratio 13.0 Glucose 135 H POC Glucose 154 H 80 Calcium 8.7 Magnesium Total Bilirubin 0.6 AST 17 ALT 15 Alkaline Phosphatase 73 Troponin I High Sens Total Protein 7.5 Albumin 4.5 Globulin 3.0 Albumin/Globulin Ratio 1.5 Lipase Vitamin B12 Folate Procalcitonin TSH Urine Color Urine Appearance Urine pH Ur Specific [place] Urine Protein Urine Glucose (UA) Urine Ketones Urine Blood Urine Nitrite Urine Bilirubin Urine Urobilinogen Ur Leukocyte Esterase Urine Comment Anaplasma Smear Babesia Smear Lyme Disease Screen 06/25/25 06/25/25 06/25/25 21:26 14:51 13:34 WBC 5.91 5.35 RBC 5.02 5.16 Hgb 15.6 16.0 Hct 44.1 45.6 MCV 87.8 88.4 MCH 31.1 31.0 MCHC 35.4 35.1 RDW Std Deviation 41.4 41.8 RDW Coeff of Ramandeep 13.0 12.9 Plt Count 243 237 MPV 8.8 L 8.8 L Immature Gran % (Auto) 0.2 Neut % (Auto) 45.4 Lymph % (Auto) 46.4 Wise % (Auto) 5.4 Eos % (Auto) 1.7 Baso % (Auto) 0.9 Neut # (Auto) 2.43 Lymph # (Auto) 2.48 Wise # (Auto) 0.29 Eos # (Auto) 0.09 Baso # (Auto) 0.05 Immature Gran # (Auto) 0.01 PT 10.5 INR 1.0 APTT 31 PTT Ratio 1.1 Sodium 138 140 Potassium 3.1 L 3.3 L Chloride 97 L 98 Carbon Dioxide 33 H 33 H Anion Gap 8 9 BUN 16 13 Creatinine 1.35 H 1.20 Est Cr Clr Drug Dosing 30.6 Not Reportable eGFR 44.16 50.86 BUN/Creatinine Ratio 11.9 10.8 Glucose 153 H 119 H POC Glucose Calcium 9.2 9.3 Magnesium 2.8 H Total Bilirubin 0.5 0.6 AST 17 18 ALT 16 17 Alkaline Phosphatase 80 80 Troponin I High Sens 4.0 Total Protein 7.9 8.3 Albumin 4.4 5.0 Globulin 3.5 3.3 Albumin/Globulin Ratio 1.3 1.5 Lipase 15 Vitamin B12 708 Folate 19.18 Procalcitonin < 0.02 TSH 4.092 Urine Color Yellow Urine Appearance Clear Urine pH 8.0 H Ur Specific [place] 1.013 Urine Protein Negative Urine Glucose (UA) Negative Urine Ketones Negative Urine Blood Negative Urine Nitrite Negative Urine Bilirubin Negative Urine Urobilinogen Negative Ur Leukocyte Esterase Negative Urine Comment Anaplasma Smear See Comment Babesia Smear See Comment Lyme Disease Screen Negative 06/25/25 13:15 WBC RBC Hgb Hct MCV MCH MCHC RDW Std Deviation RDW Coeff of Ramandeep Plt Count MPV Immature Gran % (Auto) Neut % (Auto) Lymph % (Auto) Wise % (Auto) Eos % (Auto) Baso % (Auto) Neut # (Auto) Lymph # (Auto) Wise # (Auto) Eos # (Auto) Baso # (Auto) Immature Gran # (Auto) PT INR APTT PTT Ratio Sodium Potassium Chloride Carbon Dioxide Anion Gap BUN Creatinine Est Cr Clr Drug Dosing eGFR BUN/Creatinine Ratio Glucose POC Glucose 102 H Calcium Magnesium Total Bilirubin AST ALT Alkaline Phosphatase Troponin I High Sens Total Protein Albumin Globulin Albumin/Globulin Ratio Lipase Vitamin B12 Folate Procalcitonin TSH Urine Color Urine Appearance Urine pH Ur Specific [place] Urine Protein Urine Glucose (UA) Urine Ketones Urine Blood Urine Nitrite Urine Bilirubin Urine Urobilinogen Ur Leukocyte Esterase Urine Comment Anaplasma Smear Babesia Smear Lyme Disease Screen Diagnostic Findings . Chest X-Ray 06/25/25 13:31 XR chest 1V portable HISTORY: 64 years-old Female weakness acute weakness COMPARISON: None TECHNIQUE: AP view of the chest FINDINGS: Cardiomediastinal and hilar silhouettes are within normal limits. No pneumothorax, pleural effusion, airspace consolidation or pulmonary edema. Bones of the chest appear grossly intact. IMPRESSION: No acute process. ACT 112: Negative or not required by law. The above report was generated using voice recognition software. It may contain grammatical, syntax or spelling errors. Electronically signed by: Adilson Saab M.D. 06/25/2025 2:[address] 06/25/25 13:38 CT head/brain wo con CLINICAL HISTORY: 64 years-old Female with neuro deficit, acute stroke suspected. Acute stroke like symptoms TECHNIQUE: Multiple axial CT images of the head were obtained without contrast. A dose lowering technique was utilized adhering to the principles of ALARA. COMPARISON: CTA head same day FINDINGS: No acute intracranial hemorrhage, midline shift, intracranial mass, hydrocephalus, territorial ischemia or abnormal extra-axial collection. Involutional changes. Large area of right MCA distribution encephalomalacia with right-sided craniotomy changes. Trace mastoid effusions. Mild mucosal thickening of the ethmoid air cells. IMPRESSION: 1. No acute intracranial abnormality. 2. 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 ACT 112: Negative or not required by law. The above report was generated using voice recognition software. It may contain grammatical, syntax or spelling errors. Electronically signed by: Adilson Saab M.D. 06/25/2025 2:11 PM Head CTA 06/25/25 13:38 CTA ANGIOGRAPHY OF THE HEAD CLINICAL HISTORY: neuro deficit, acute stroke suspected COMPARISON STUDY: No previous studies for comparison. TECHNIQUE: Helical axial images of the head were obtained following uneventful intravenous administration of 115 cc of Optiray. Sagittal and coronal reconstructions were viewed as well as maximal intensity projections on an independent 3-D workstation. Automated exposure control was utilized for the study. A dose lowering technique was utilized adhering to the principles of ALARA. CT DOSE: 927.13 mGy.cm FINDINGS: Please note that the head CT will be reported separately. No acute intracranial hemorrhage is present. A right sided craniotomy is noted with right temporal encephalomalacia. Associated dilatation of the right lateral ventricle is noted. These findings are chronic. The bilateral M1, M2, A1 and A2 segments are patent. There is moderate stenosis of the right supraclinoid ICA as well as the basilar artery. No large vessel occlusion is identified. The intracranial portions of the vertebral arteries are patent. The bilateral posterior cerebral artery are patent. There is no intracranial aneurysm. IMPRESSION: 1. No large vessel occlusion. No intracranial aneurysm. 2. Moderate stenosis of the right supraclinoid internal carotid and basilar arteries. 3. Status post right craniotomy. Right temporal lobe encephalomalacia with associated dilatation of the right lateral ventricle which is chronic. ACT 112: Negative or not required by law. Electronically signed by: Brandon Almeida M.D. 06/25/2025 2:12 PM Neck CTA 06/25/25 13:38 CT ANGIOGRAPHY OF THE NECK WITH CONTRAST CLINICAL HISTORY: neuro deficit, acute stroke suspected COMPARISON STUDY: No previous studies for comparison. Technique: CT angiography of the carotid and vertebral arteries was obtained using 115 cc Optiray and 3D reconstruction on an independent workstation. NASCET criteria was utilized. Automated exposure control was utilized for the study. A dose lowering technique was utilized adhering to the principles of ALARA. CT DOSE: Findings: The lung apices are unremarkable in appearance. No significant thyroid tissue is visualized. There is no pathologic neck adenopathy. There is an opacified right ethmoid air cell. There are postsurgical changes present within the right temporal lobe with right temporal lobe encephalomalacia There is no evidence of hemodynamically significant carotid stenosis. There is no evidence of carotid dissection. On image #[id number], hyperdense focus adjacent the medial aspect of the left vertebral artery at the C5-6 level. This is favored to represent a small osteophytic bone fragment as opposed to a short segment dissection. There is mild deformity of the vertebral at this level. Otherwise there is no evidence of vertebral artery stenosis or other findings to indicate dissection. There is a 50% stenosis of the mid basilar artery. IMPRESSION: 1. No evidence of carotid artery stenosis or dissection 2. 50% stenosis of the mid basilar artery 3. Double lumen appearance of the left vertebral artery at the C5-C6 level as visualized image #[id number]. A deformity of the vertebral artery secondary to an osteophytic fragment is favored over a short segment dissection. ACT 112: Negative or not required by law. Electronically signed by: Antwan Ivory M.D. 06/25/2025 2:20 PM Brain MRI 06/25/25 14:19 Exam(s): MRI HEAD Without Contrast EXAM: MR Head Without Intravenous Contrast CLINICAL HISTORY: Reason for exam: cannot move head, neck or legs, weakness. TECHNIQUE: Magnetic resonance images of the head/brain without intravenous contrast in multiple planes. COMPARISON: CT, CTA 06/25/2025 FINDINGS: There is a right-sided craniotomy with resection cavity in the right temporal lobe and surrounding gliosis, associated with ex vacuo enlargement of the right lateral ventricle. There is no mass effect or midline shift. There is no diffusion restriction to suggest acute cerebral ischemia. There are no significant chronic small-vessel ischemic changes. There is no evidence of acute intracranial hemorrhage. There is no hydrocephalus. There is mucosal thickening within the posterior right ethmoids. Sinuses and mastoids are otherwise unremarkable. IMPRESSION: No acute intracranial findings. Electronically signed by: Kim Us M.D. 06/25/25 21:44 PM Cervical Spine MRI 06/25/25 14:19 Exam(s): MRI C SPINE EXAM: MR Cervical Spine Without Intravenous Contrast CLINICAL HISTORY: Reason for exam: cannot move head, neck or legs, weakness. TECHNIQUE: Magnetic resonance images of the cervical spine without intravenous contrast in multiple planes. COMPARISON: Prior CT angiogram of the neck from June 25 2025. FINDINGS: This study is limited secondary to motion artifact. Vertebrae: There are 7 cervical type vertebral bodies with a mild generalized curved to the right and straightening normal cervical lordosis. There is normal vertebral body height and alignment. The bone marrow signal is heterogeneous with reactive endplate changes. No acute fracture. There is narrowing of the spinal canal secondary to congenitally short pedicles. There is mild to advanced facet arthropathy with mild to moderate synovitis, most significant at the left C3-4 facet joint. Spinal cord: There is flattening the ventral cord at C3-4, C4-5, C5-6 and C6-7 with focal area of myelomalacia at C5-6 without evidence of cord edema. Soft tissues: The cervical flow voids are intact. DISCS/SPINAL CANAL/NEURAL FORAMINA: C2-C3: The intervertebral disc is normal. C3-C4: There is mild disc degeneration with annular disc bulge flattening the ventral cord without evidence of abnormal cord signal and causing a severe spinal canal stenosis with AP diameter measuring 7.1 mm. C4-C5: Moderate disc degeneration with annular disc bulge flattening the ventral cord without evidence of abnormal cord signal and causing a critical spinal canal stenosis with AP diameter measuring 6.1 mm. C5-C6: Advanced disc degeneration with annular disc bulge flattening the ventral cord with focal areas of myelomalacia a causing a critical spinal canal stenosis with AP diameter measuring 5.6 mm. C6-C7: Advanced disc degeneration with annular disc bulge flattening the ventral cord without evidence of cord signal and causing a critical spinal canal stenosis with AP diameter 6.6 mm. C7-T1: The intervertebral disc is normal. IMPRESSION: 1. Advanced disc degeneration at C5-6, C6-7: Moderate disc degeneration at C4-5 and mild disc degeneration at C3-4 with annular disc bulging flattening the ventral cord with areas of focal myelomalacia at C5-6. No evidence of cord edema. 2. There is a critical spinal canal stenosis at C4-5, C5-6 and C6-7 and severe stenosis at C3-4 with a congenitally narrow spinal canal. 3. The neural foramina are poorly visualized secondary to motion artifact. 4. There is mild to advanced facet arthropathy with mild to moderate synovitis, most significant at the left C3-4 facet joint. 5. No evidence of fracture, infection, tumor or arachnoiditis. Electronically signed by: Qing Fair MD 06/25/25 22:50 PM Lumbar Spine MRI 06/25/25 14:19 Exam(s): MRI L SPINE Without Contrast EXAM: MR Lumbar Spine Without Intravenous Contrast CLINICAL HISTORY: Reason for exam: cannot move head, neck or legs, weakness. TECHNIQUE: Magnetic resonance images of the lumbar spine without intravenous contrast in multiple planes. COMPARISON: No relevant prior studies available. FINDINGS: There is normal lumbar lordosis and vertebral body height. There is no acute fracture or traumatic subluxation. There is no discitis. Small benign intraosseous hemangiomas are noted at the L1, L2, and L3 levels. Conus medullaris terminates opposite L1 and is normal in caliber and signal. There is multilevel disc desiccation and disc degeneration with disc height loss greatest at the L4-L5 level. There is multilevel facet degeneration. L1-L2: Mild disc degeneration. Facet degeneration. No spinal canal stenosis. No significant foraminal narrowing. L2-L3: Mild disc degeneration. Marked facet degeneration with ligamentum flavum thickening. Grade 1 anterolisthesis of L2 measuring 3 mm. Moderate spinal canal stenosis with narrowing of the lateral recesses and disc material abutting the bilateral traversing L3 nerve roots. Severe left and [id number] right foraminal narrowing. L3-L4: Mild disc degeneration. Marked facet degeneration. Mild canal stenosis with narrowing of the lateral recesses and disc material abutting the traversing bilateral L4 nerve roots. Severe bilateral foraminal narrowing, right worse than left. L4-L5: Moderate disc degeneration. Disc bulging. Marked facet degeneration. No significant spinal canal stenosis. Moderate bilateral foraminal narrowing. L5-S1: Mild disc degeneration. Facet degeneration. No spinal canal stenosis. Mild bilateral foraminal narrowing. Sacroiliac joints are normally aligned. Paravertebral soft tissues are unremarkable. IMPRESSION: 1. Multilevel degenerative changes without acute osseous abnormality. 2. Varying degrees of spinal canal stenosis, moderate at L2-L3. 3. Severe left foraminal narrowing L2-L3, severe bilateral foraminal narrowing L3-L4, moderate bilateral foraminal narrowing L4-L5. 4. Additional [id number] findings as noted above. Electronically signed by: Kim Us M.D. 06/25/25 20:18 PM Thoracic Spine MRI 06/25/25 14:19 Exam(s): MRI T SPINE Without Contrast EXAM: MR Thoracic Spine Without Intravenous Contrast CLINICAL HISTORY: Reason for exam: cannot move head, neck or legs, weakness. TECHNIQUE: Magnetic resonance images of the thoracic spine without intravenous contrast in multiple planes. COMPARISON: No relevant prior studies available. FINDINGS: Vertebrae: Unremarkable. No acute fracture. Discs/spinal canal/neural foramina: No acute findings. No significant disc disease. No spinal canal stenosis. Spinal cord: Unremarkable. Normal signal. Soft tissues: Unremarkable. IMPRESSION: Unremarkable thoracic spine MRI. Electronically signed by: Kim Us M.D. 06/25/25 21:28 PM PG Care Time/CCT Total # of Minutes Spent Total Time Spent with Patient: Total time spent is greater than 50% in coordination of care (as documented) at patient's floor/unit and/or counseling patient: [place] [address] IN/OBS CONSULT LVL 5,80M Patient Type New Medical Decision Making High Complexity Diagnoses Cervical cord myelomalacia G95.89 Cervical stenosis of spine M48.02 Lumbar stenosis M48.061 Lower extremity weakness R29.898
[2025-06-26] MEDS: ASPIRIN 81 MG ECTAB PO SCH (12:43)
[2025-06-26] MEDS ORDERED: MAGNESIUM HYDROXIDE SUSP 30 ML UDC PO PRN (13:16)
--- NOTE | 2025-06-26 13:18 | Pharmacy Report ---
Pharmacy Glycemic Short Note 2 - Date of Service June 26, 2025 - Glycemic Short BSG Results (Last 24 hours): 06/25/25 06/25/25 06/25/25 13:15 13:34 21:26 Glucose 119 H 153 H POC Glucose 102 H 06/26/25 06/26/25 06/26/25 07:24 07:54 11:27 Glucose 135 H POC Glucose 80 154 H OUTPATIENT ANTIDIABETIC REGIMEN: * Omnipod Insulin pump * Basal 0.3units/hr * Bolus CF 100, CR 30 * TDD ~15units/day ASSESSMENT: * 64 yo F, PMH T2DM, CVA, Hypothyroidism, HTN, HL, CKD Right-sided craniotomy/lobotom, with complaints weakness of legs, head, neck with inability to support herself. * Patient does not have insulin pump supplies, so using basal bolus insulin similar to her pump settings while inpatient. PLAN FOR INPATIENT GLYCEMIC CONTROL: * Hold outpatient insulin pump * Basal insulin * Lantus 5-7 units SQ HS * Bolus insulin * NovoLog per scale ACHS or Q6hrs while NPO * Goal Range: Low 110 mg/dL - High 140 mg/dL * Correction Factor: 100 mg/dL/unit * Nutritional / Prandial insulin per carb ratio of 1 unit per 30 grams CHO consumed
[2025-06-26] MEDS: MAGNESIUM HYDROXIDE SUSP 30 ML UDC PO PRN (13:32)
[2025-06-26] MEDS: cloBAZam 5 MG TAB PO STA (18:09)
--- NOTE | 2025-06-26 18:27 | Anesthesiology Consultation ---
Date of Service June 26, 2025 Assessment & Plan Chart Review Chart Review: Acceptable Risk for Surgery Consults Requested none History Surgery Operation Date: 06/26/25 17:45 Proposed Procedures p Anterior Cervical Discectomy Fusion C4-C5, C5-C6, C6-C7 - Lauri Cobb MD Height/Weight Height: 5 ft Weight: 50.9 kg Allergies Allergy/AdvReac Type Severity Reaction Status Date / Time Sulfa (Sulfonamide Allergy Severe Anaphylaxis Verified 05/25/25 16:20 Antibiotics) Medications Home Medications Medication Instructions Recorded Confirmed Last Taken amlodipine 2.5 mg tablet 2.5 mg PO DAILY 02/12/25 06/25/25 Unknown aspirin 81 mg tablet 81 mg PO DAILY 02/12/25 06/25/25 Unknown blood-glucose sensor (Dexcom G7 02/12/25 05/25/25 Unknown Sensor device) blood-glucose,hydroelectric plant electrician,cont 02/12/25 05/25/25 Unknown (Dexcom G7 Surgical Services Asst) lamotrigine 250 mg tablet,extended 250 mg PO BID 02/12/25 06/25/25 Unknown release 24 hr losartan 50 mg tablet 100 mg PO DAILY 02/12/25 06/25/25 Unknown rosuvastatin 20 mg tablet (Crestor) 0 mg PO DAILY 02/12/25 06/25/25 Unknown insulin glargine 100 unit/mL (3 0 unit subcut QAM 02/19/25 06/25/25 Unknown mL) subcutaneous pen (Lantus Solostar U-100 Insulin) levothyroxine 75 mcg tablet 88 mcg PO DAILY 02/19/25 06/25/25 Unknown insulin pump cart,auto,BT,G6/7 #10 ea 04/09/25 05/25/25 Unknown (Omnipod 5 G6-G7 Pods (Gen 5) subcutaneous cartridge) insulin pump cartridge,auto #1 ea 04/09/25 05/25/25 Unknown dose,BT,G6/G7 with controller subcutaneous (Omnipod 5 G6-G7 Intro Kit(Gen 5) subcutaneous cartridge and controller) glucagon 1 mg/0.2 mL subcutaneous 1 mg (0.2 mL) subcut ONCE #0.4 mL 05/06/25 06/25/25 Unknown auto-injector (Gvoke HypoPen 2-Pack) acetone (urine) test (Ketone Urine #100 ea 05/25/25 05/25/25 Unknown Test strips) clobazam 20 mg tablet 25 mg PO HS 05/25/25 06/25/25 Unknown insulin lispro 100 unit/mL 44 unit (0.44 mL) subcut DAILY #40 06/16/25 06/25/25 Unknown subcutaneous solution (Humalog mL U-100 Insulin) insulin lispro 100 unit/mL 0 unit subcut TID 06/25/25 06/25/25 Unknown subcutaneous half-unit pen (Humalog Jori KwikPen (U-100)) Active Medications Generic Name Dose Route Start Last Admin Trade Name Freq PRN Reason Stop Dose Admin Amlodipine Besylate 2.5 mg 06/26/25 10:15 06/26/25 12:43 Amlodipine Besylate 5 Mg Tab PO 07/26/25 10:14 2.5 mg DAILY ARIANA Administration Aspirin 81 mg 06/26/25 10:15 06/26/25 12:43 Aspirin 81 Mg Ectab PO 07/26/25 10:14 81 mg DAILY ARIAAN Administration Sodium Chloride 1,000 mls @ 75 mls/hr 06/25/25 19:11 06/26/25 11:46 Nss IV 06/28/25 19:10 75 mls/hr .[id number] ARIANA Administration Insulin Aspart 0 units 06/25/25 21:00 06/26/25 16:42 Insulin Aspart Per Unit Charge SC 07/25/25 20:59 Not Given ACHS ARIANA Insulin Glargine 0 units 06/25/25 21:00 06/25/25 22:39 Lantus Per Unit Charge SC 07/25/25 20:59 6 units HS ARIANA Administration Protocol Levothyroxine Sodium 88 mcg 06/26/25 06:30 06/26/25 05:52 Levothyroxine Sodium 88 Mcg Tablet PO 07/26/25 06:29 Not Given DAILYBB ARIANA Losartan Potassium 100 mg 06/26/25 09:00 06/26/25 08:48 Losartan Potassium 50 Mg Tab PO 07/26/25 08:59 100 mg DAILY ARIANA Administration Lamotrigine 250mg Er 1 each 06/25/25 23:00 06/26/25 18:09 - Patient's Own Med PO 07/25/25 22:59 1 cap BID ARIANA Administration Polyethylene Glycol 17 gm 06/25/25 19:11 06/26/25 08:53 Polyethylene (Miralax) 17 Gm Pack PO 07/25/25 19:10 17 gm DAILY PRN Administration Constipation Rosuvastatin Calcium 20 mg 06/26/25 09:00 06/26/25 08:48 Rosuvastatin Calcium 20 Mg Tab PO 07/26/25 08:59 20 mg DAILY ARIANA Administration NPO Date Last Intake of Fluids: 06/26/25 Time Last Intake of Fluids: 12:30 Date Last Intake of Solids: 06/26/25 Time Last Intake of Solids: 12:30 Social History Smoking Status: Unknown if ever smoked Hx Alcohol Use: No Hx Substance Use: No Physical Exam Vital Signs Last Vital Signs Temp 36.8 C 06/26/25 17:00 Pulse 78 06/26/25 17:00 Resp 20 06/26/25 17:00 BP 159/89 H 06/26/25 17:00 Pulse Ox 96 06/26/25 17:00 O2 Del Method Room Air 06/26/25 17:00 Testing Laboratory Results 06/26/25 07:54 06/26/25 07:54 PT 10.5 Seconds (9.0-12.0) 06/25/25 13:34 INR 1.0 (0.9-1.1) 06/25/25 13:34 APTT 31 Seconds (21-31) 06/25/25 13:34 Urine Color Yellow 06/25/25 14:51 Urine Appearance Clear (Clear) 06/25/25 14:51 Urine pH 8.0 (4.5-7.5) H 06/25/25 14:51 Ur Specific [place] 1.013 (1.000-1.030) 06/25/25 14:51 Urine Protein Negative (Negative) 06/25/25 14:51 Urine Glucose (UA) Negative (Negative) 06/25/25 14:51 Urine Ketones Negative (Negative) 06/25/25 14:51 Urine Nitrite Negative (Negative) 06/25/25 14:51 Ur Leukocyte Esterase Negative (Negative) 06/25/25 14:51 06/26/25 06/26/25 06/26/25 16:18 11:27 07:24 POC Glucose 72 154 H 80
[2025-06-26] MEDS ORDERED: ONDANSETRON INJ 2 MG/ML 2 ML VIAL IV PRN (18:29)
[2025-06-26] MEDS ORDERED: ATROPINE SULFATE 0.1 MG/ML 10ML SYR IV PRN (18:29)
[2025-06-26] MEDS ORDERED: PROMETHAZINE HCL 6.25 MG in SODIUM CHLORIDE 0.9% 50 ML IV PRN (18:29)
[2025-06-26] MEDS ORDERED: MIDAZOLAM HCL 1 MG/ML 2ML VIAL ONE (18:34)
[2025-06-26] MEDS ORDERED: ALBUMIN HUMAN 5% 12.5 GM/250 ML VIAL IV ONE (18:35)
[2025-06-26] MEDS ORDERED: ROCURONIUM BROMIDE 10 MG/ML 5 ML VIAL IV ONE ×3 (18:35→21:10)
[2025-06-26] MEDS ORDERED: LIDOCAINE 2% 2 ML VIAL/AMP(20MG/ML) INFIL ONE (18:35)
[2025-06-26] MEDS ORDERED: PROPOFOL IV EMULSION 10 MG/ML 20 ML VIAL IV ONE (18:35)
[2025-06-26] MEDS ORDERED: PHENYLEPHRINE 100MCG/ML 5ML SYR ONE (18:40)
[2025-06-26] MEDS ORDERED: VASOPRESSIN 20 UNIT/ML VIAL ONE (18:59)
[2025-06-26] MEDS ORDERED: ceFAZolin 330 MG/ML 1 GM VIAL ONE (19:31)
[2025-06-26] MEDS ORDERED: ONDANSETRON INJ 2 MG/ML 2 ML VIAL ONE ×2 (19:34→23:55)
[2025-06-26] MEDS ORDERED: DEXAMETHASONE SOD INJ 4 MG/ML VIAL ONE (19:34)
--- NOTE | 2025-06-26 19:52 | Anesthesia Procedure Note ---
Anesthesia Procedure Note Arterial Line Note Date of procedure: 06/26/25 Consent: Risk / Benefits Reviewed With: PT / POA / Parent / Guardian, Accepts Plan, Informed Consent Obtained and All Questions Answered Monitors attached: Blood Pressure, CO2, EKG and Pulse Oximetry Oxygen delivery method: ETT Time out completed: Yes Premedication: None Laterality: Left Location: Radial Hand hygeine: Alcohol based hand rub Equipment/Supplies: Cap, Mask, Sterile gloves, Sterile drapes and Sterile procedures used Skin prep: Chloraprep Ultrasound used: Yes US equipment and supplies: Sterile Gel and Sterile Probe Cover Attempts: 1 Procedure Summary: Done in OR POST INTUBATION Post-Procedure: Pt hemodynamically stable, Pt tolerates well and No complication
[2025-06-26] MEDS ORDERED: SUGAMMADEX SODIUM 200 MG/2 ML VIAL IV ONE (21:24)
[2025-06-26] MEDS: VANCOMYCIN HCL 1000MG/20ML VIAL ONE (22:32)
[2025-06-26] MEDS: FLOSEAL HEMOSTATIC MATRIX 10ML TOP ONE (23:00)
[2025-06-26] MEDS: GELATIN SPONGE 12-7MM ONE (23:01)
[2025-06-26] MEDS: THROMBIN 5000 UNITS KIT ONE (23:01)
[2025-06-27] MEDS ORDERED: LORazepam Inj 0.5 MG in SYRINGE 0.25 ML IV PRN (00:48)
[2025-06-27] MEDS ORDERED: RACEPINEPHRINE 2.25% NEBU SOLN 0.5 ML VIAL INH PRN (00:48)
[2025-06-27] MEDS ORDERED: DO NOT ADMINISTER FLU VACCINE PRN (00:48)
[2025-06-27] MEDS ORDERED: diphenhydrAMINE Capsule 25 MG CAP PO PRN (00:48)
[2025-06-27] MEDS ORDERED: DO NOT ADMINISTER PNEUMOCOCCAL VACCINE PRN (00:48)
[2025-06-27] MEDS ORDERED: PROMETHAZINE 12.5 MG/50.5 ML BAG IV PRN (00:48)
[2025-06-27] MEDS ORDERED: ONDANSETRON INJ 2 MG/ML 2 ML VIAL IV PRN (00:48)
[2025-06-27] MEDS ORDERED: ONDANSETRON 4 MG OD TAB PO PRN (00:48)
[2025-06-27] MEDS ORDERED: dexAMETHasone 8 MG in SYRINGE 0 ML IV PRN (00:48)
[2025-06-27] MEDS ORDERED: METOCLOPRAMIDE HCL INJ 5 MG/ML 2 ML VIAL IV PRN (00:48)
[2025-06-27] MEDS ORDERED: HYDROmorphone INJ 0.5 MG/0.5 ML SYR IV PRN (00:48)
[2025-06-27] MEDS ORDERED: FAMOTIDINE 20 MG TAB PO PRN (00:48)
[2025-06-27] MEDS ORDERED: ALUMINUM/MAGNESIUM SUSP 30 ML UDC PO PRN (00:48)
[2025-06-27] MEDS ORDERED: NALOXONE HCL 0.4 MG/1 ML VIAL/CARP IV PRN (00:48)
[2025-06-27] MEDS ORDERED: PHARMACY GLYCEMIC MGMT CONSULT PRN (00:48)
[2025-06-27] MEDS ORDERED: MAGNESIUM HYDROXIDE SUSP 30 ML UDC PO PRN (00:48)
[2025-06-27] MEDS ORDERED: LORazepam 0.5 MG TAB PO PRN (00:48)
--- NOTE | 2025-06-27 00:48 | Post Operative Brief Note ---
PG Immediate Post Op with CF Date of Surgery June 27, 2025 Pre & Post Diagnosis Operation Date: 06/26/25 17:45 Pre-Op Diagnosis: Cervical cord myelomalacia; Cervical stenosis of spine Post-Op Diagnosis: Cervical cord myelomalacia; Cervical stenosis of spine I identified the patient and participated in the time-out.: Yes Procedure Operation Date: 06/26/25 17:45 Actual Procedures p Anterior Cervical Discectomy Fusion C4-C5, C5-C6, C6-C7 - Lauri Cobb MD Surgeon Lauri Cobb MD Puller Out none Estimated Blood Loss 50 Findings Consistent with Post-Op Diagnosis Drains Ridley Catheter and Thony-Cifuentes Drain (10Fr Round)
--- NOTE | 2025-06-27 01:14 | Anesthesiology Progress Note ---
Date of Service June 27, 2025 Anesthesia Post Procedure Vital Signs Vital Signs: Temp Pulse Pulse Pulse Resp BP BP 06/27/25 01:05 84 22 134/74 06/27/25 00:55 102 H 20 151/81 H 06/27/25 00:45 36.1 C L 80 22 134/72 06/26/25 17:00 36.8 C 78 20 159/89 H 06/26/25 15:00 66 06/26/25 10:40 36.6 C 62 18 179/85 H 06/26/25 09:00 06/26/25 07:15 60 06/26/25 03:42 36.7 C 60 16 120/72 Pulse Ox O2 Del Method O2 Flow Rate 06/27/25 01:05 98 Oxymask 3 06/27/25 00:55 100 Oxymask 6 06/27/25 00:45 100 Oxymask 6 06/26/25 17:00 96 Room Air 06/26/25 15:00 06/26/25 10:40 99 Room Air 06/26/25 09:00 Room Air 06/26/25 07:15 06/26/25 03:42 98 Room Air Pain Intensity Neck: Pain Intensity: 10 Transfer of Care Handoff Completed per policy Notes Mental Status: alert / awake / arousable and participated in evaluation Patient Amnestic to Procedure: Yes Nausea / Vomiting: adequately controlled Pain: improving with treatment Airway Patency, RR, SpO2: stable & adequate BP & HR: stable & adequate Hydration State: stable & adequate Anesthetic Complications: no major complications apparent and Pt Satisfied with anesthetic care
[2025-06-27] MEDS: HYDROmorphone INJ 1 MG/ML SYRINGE IV PRN ×2 (01:25→03:52)
[2025-06-27] MEDS: ACETAMINOPHEN 1,000 MG/100 ML VIAL IV PRN (02:40)
[2025-06-27 04:35] LABS: Alanine Aminotransferase 11.0 U/L (7-52); Albumin Globulin Ratio 1.5 (0.9-2); Albumin Level 3.8 gm/dl (3.4-5.0); Alkaline Phosphatase 58.0 U/L (34-104); Anion Gap 8.0 (3-11); Bilirubin,Total 0.4 mg/dl (0.2-1.0); Blood Urea Nitrogen 14.0 mg/dl (6-23); Calcium 7.5 mg/dl (8.6-10.3); Carbon Dioxide 24.0 mmol/L (21-32); Chloride 105.0 mmol/L (98-107); Creatinine Clr Calc Pharmacy 48.7 ml/min; Globulin 2.5 gm/dl (2.5-4.0); Glucose 272.0 mg/dl (70-99(Fasting)); Potassium 4.0 mmol/L (3.5-5.1); Sodium 137.0 mmol/L (136-145); Total Protein 6.3 gm/dl (6.0-8.3)
[2025-06-27 06:22] LABS: Hematocrit (blood only) 36.6 % (37.0-47.0); Hemoglobin 12.3 g/dL (12.0-16.0); Immature Granulocytes # (auto) 0.05 K/uL (0.01-0.20); Immature Granulocytes % (auto) 0.6 %; Mean Corpuscular Hemoglobin 31.1 pg (25.0-34.0); Mean Corpuscular Volume 92.4 fL (80.0-100.0); Platelet Count 173 K/uL (130-400); RDW Standard Deviation 44.9 fL (36.4-46.3); Red Blood Count 3.96 M/uL (4.20-5.40); White Blood Count 9.08 K/ul (4.8-10.8)
--- NOTE | 2025-06-27 07:39 | Fluoroscopy Report ---
FL cervical 2-3V CLINICAL HISTORY: C SPINE DISCECTOMY/FUSION COMPARISON STUDY: MR cervical spine 06/25/2025 FLUOROSCOPY TIME: 2 minutes and 7.8 seconds FLUOROSCOPY IMAGES: 24 EXPOSURE DOSE: 12.173 mGy FINDINGS: Endotracheal tube is present. Anterior plate and screw fusion with discectomy changes noted at what appears to be the C4-C7 levels. Hardware appears intact. Alignment appears satisfactory. Ove rlying surgical clips are present. IMPRESSION: Fluoroscopic assistance as above. ACT 112: Negative or not required by law. Electronically signed by: Adilson Saab M.D. 06/27/2025 7:36 AM
[2025-06-27] MEDS: LANTUS PER UNIT CHARGE SC ONE (09:25)
--- NOTE | 2025-06-27 09:41 | Pharmacy Report ---
Pharmacy Glycemic Short Note 2 - Date of Service June 27, 2025 - Glycemic Short BSG Results (Last 24 hours): 06/26/25 06/26/25 06/26/25 11:27 16:18 21:33 Glucose POC Glucose 154 H 72 POC Glucose (other) 148 H 06/27/25 06/27/25 06/27/25 00:50 03:37 07:00 Glucose 272 H POC Glucose 189 H 233 H POC Glucose (other) OUTPATIENT ANTIDIABETIC REGIMEN: * Omnipod Insulin pump * Basal 0.3units/hr * Bolus CF 100, CR 30 * TDD ~15units/day ASSESSMENT: 06/27 * POD1 spinal surgery last evening. Patient missed HS basal dose d/t being in OR and also received IV Dexamethasone resulting in hyperglycemia this morning, BG 233mg/dl. * Will give basal dose now to make up for missed dose and cover steroids, and resume normal dose tonight, unless patient brings in pump supplies, then pump may be resumed this evening. 06/26 * 64 yo F, PMH T2DM, CVA, Hypothyroidism, HTN, HL, CKD Right-sided craniotomy/lobotom, with complaints weakness of legs, head, neck with inability to support herself. * Patient does not have insulin pump supplies, so using basal bolus insulin similar to her pump settings while inpatient. PLAN FOR INPATIENT GLYCEMIC CONTROL: * Hold outpatient insulin pump * Basal insulin * Lantus 6 units x1 dose this AM, then 5-7 units SQ HS * Bolus insulin * NovoLog per scale ACHS or Q6hrs while NPO * Goal Range: Low 110 mg/dL - High 140 mg/dL * Correction Factor: 100 mg/dL/unit * Nutritional / Prandial insulin per carb ratio of 1 unit per 30 grams CHO consumed
--- NOTE | 2025-06-27 10:29 | Hospitalist Progress Note ---
Date of Service June 27, 2025 Assessment & Plan (1) Type 1 diabetes mellitus: (2) Hyperlipidemia: (3) Hypothyroidism: (4) Weakness: Plan 64 female diabetes CVA Hypothyroidism hypertension Hyperlipidemia CKD Right- sided craniotomy/lobotomy reportedly for history epilepsy? who presents with complaints of inability to support her self and weakness of legs as well as head and neck with inability to support self. She has experienced this Multiple times over the past few months and it seems has not seek medical attention with most recent episode being in the morning prior to arrival to ED. No arm weakness Numbness tingling lightheadedness vision change. No fevers chills manfred st pain shortness of breath recent illness abdominal pain diarrhea or other symptoms. No trauma. Noted to be retaining 800 cc of urine in ED Ridley placed. Bilateral lower extremity and head and neck weakness rule out cord compression, rule out Ellsworth Bates (Although the latter would be an ascending process) Neurochecks Supportive care CTA head and neck with moderate stenosis internal carotid and basilar TFTs WNL Tick panel NTD B12 folate wnl MRI brain Unrevealing Ritchie MRI Spine Critical Cervical and lumbar stenosis Status post cervical discectomy and fusion by orthospine on 06/26 Postoperative supportive care Follow orthospine further input. Resume chemoprophylaxis once okay with surgery Urinary retention in setting of the above Ridley inserted in ED on 06/25. Voiding trial PTD Diabetes Short and long-acting insulin. Pharmacy managing Hypothyroidism Levothyroxine Hypertension Continue home medications History epilepsy c/w clobazam. f/u closely with pcp/neurologist. Falls/weakness PTOT Fall precautions DVT prophylaxis Full code Disposition TBD pending the above Admission and Anticipated Discharge Date Admission Date: June 25, 2025 Subjective Seems to be doing well Postoperatively. Tells me she feels Tired and wants to go back to sleep. Denies uncontrolled neck pain distal numbness tingling weakness fevers chills chest pain shortness of breath or any other symptoms. Review of Systems Constitutional: Negative except as in HPI Physical Exam Physical Exam: VITAL SIGNS - Vital signs and nursing notes were reviewed. Stable and afebrile. GENERAL -64-year-old female appearing his stated age who is in no acute distres s. Communicates well with provider and answers questions appropriately. SKIN - Without rashes. HEAD - NC/AT. EYES - PERRL with EOMI bilaterally. Sclera anicteric. EARS - No deformities of external structures noted on gross examination bilaterally. External auditory canals without discharge or otorrhea. Tympanic membranes pearly cao without retraction or bulging. No fluid or purulent material visualized behind the TM. Handle of malleus, umbo, cone of light, pars tensa/flaccid all easily visualized. NOSE - Midline and without cyanosis. No epistaxis or purulent drainage noted. Septum midline without deviation or septal hematoma noted. MOUTH/OROPHARYNX - Without perioral cyanosis. Buccal mucosa pink and moist and without leukoplakia. Tongue midline with equal elevation of palate bilaterally. No tonsillar hypertrophy, erythema, or exudates noted. Good dentition noted. NECK -the patient is only able to minimally actively turn the head left and right. Minimally look up and down with head tilt. No nuchal rigidity. LUNGS - Chest wall symmetric without accessory muscle use, intercostals retractions, or central cyanosis. Normal vesicular breath sounds CTA B/L. No wheezes, rales, or rhonchi appreciated. CARDIAC - RRR with S1/S2. No murmur, rubs, or gallops appreciated. ABDOMEN - Abdominal contour normal without pulsations or visible masses. BS normoactive all four quadrants. No tenderness, palpable masses, hepatosplenomegaly, or ascites noted. EXTREMITIES - No clubbing or peripheral cyanosis. Patient's extremities are appropriately warm and well-perfused. However she is not able to move the lower extremities at all. She has full range of the upper extremities. Pulses intact bilaterally. NEUROLOGIC - Cranial nerves II through XII grossly intact. PSYCH -alert, oriented and pleasant on exam Results & Data Results & Data Vital Signs (Past 12 Hours) Vital Signs Temp Pulse Pulse Pulse Pulse Resp BP 06/27/25 10:10 06/27/25 09:45 67 12 102/59 L 06/27/25 07:49 64 16 06/27/25 07:09 36.4 C 66 12 114/65 06/27/25 06:30 06/27/25 05:00 70 10 L 106/61 06/27/25 04:00 78 16 130/72 06/27/25 03:00 81 20 119/51 L 06/27/25 02:48 90 22 137/74 06/27/25 02:33 92 H 19 06/27/25 02:30 06/27/25 02:18 92 H 06/27/25 02:18 36.8 C 90 18 140/78 06/27/25 01:45 36.9 C 94 H 20 141/69 H 06/27/25 01:35 96 H 20 138/69 06/27/25 01:25 98 H 22 150/74 H 06/27/25 01:15 97 H 20 144/77 H 06/27/25 01:05 84 22 134/74 06/27/25 00:55 102 H 20 151/81 H 06/27/25 00:45 36.1 C L 80 22 134/72 Pulse Ox O2 Del Method O2 Flow Rate 06/27/25 10:10 Room Air 06/27/25 09:45 93 Room Air 06/27/25 07:49 97 Room Air 06/27/25 07:09 96 Room Air 06/27/25 06:30 96 Room Air 06/27/25 05:00 98 Nasal Cannula 1 06/27/25 04:00 98 Nasal Cannula 1 06/27/25 03:00 100 Nasal Cannula 2 06/27/25 02:48 99 Nasal Cannula 2 06/27/25 02:33 98 Nasal Cannula 2 06/27/25 02:30 Nasal Cannula 2 06/27/25 02:18 06/27/25 02:18 98 Nasal Cannula 06/27/25 01:45 98 Nasal Cannula 2 06/27/25 01:35 98 Nasal Cannula 2 06/27/25 01:25 98 Oxymask 3 06/27/25 01:15 98 Oxymask 3 06/27/25 01:05 98 Oxymask 3 06/27/25 00:55 100 Oxymask 6 06/27/25 00:45 100 Oxymask 6 PG Care Time/CCT Total # of Minutes Spent Total Time Spent with Patient: Total time spent is greater than 50% in coordination of care (as documented) at patient's floor/unit and/or counseling patient: Coding Level of Care Code 06214 SUB INP/OBS CARE 2MIN Diagnoses Type 1 diabetes mellitus without complication E10.9 Diabetes mellitus complication status: without complication Mixed hyperlipidemia E78.2 Hyperlipidemia type: mixed hyperlipidemia Postoperative hypothyroidism E89.0 Hypothyroidism type: postoperative Weakness R53.1 (1) Type 1 diabetes mellitus Diabetes mellitus complication status: without complication Qualified Code(s): E10.9 - Type 1 diabetes mellitus without complications (2) Hyperlipidemia Hyperlipidemia type: mixed hyperlipidemia Qualified Code(s): E78.2 - Mixed hyperlipidemia (3) Hypothyroidism Hypothyroidism type: postoperative Qualified Code(s): E89.0 - Postprocedural hypothyroidism
--- NOTE | 2025-06-27 10:47 | Orthopedic Progress Note ---
Date of Service June 27, 2025 Assessment & Plan (1) Cervical cord myelomalacia: (2) Lower extremity weakness: Plan * Continue Current Treatment * S/p ACDF C4-7 * (+) drain, maintain, please record output. Anticipate removal 06/28 * Weight bearing status: WBAT * Neck ROM as tolerated * Soft collar for comfort * Daily treatment: Physical Therapy/ Occupational Therapy per protocol * Pain control * Continue to monitor for ABLA * Disposition: TBD * Ok to resume DVT ppx on POD 3 * Office/hospital f/u 2 weeks for progress check and staple/suture removal * Remainder care per primary team Subjective . Active Problems: S/p ACDF C4-7 POD 1 64y/o female s/p ACDF C4-7. Doing well overall, pain managed and improved function. Marked improvement of lower extremity AROM. Denies fever/chills, chest pain/SOB, nausea/vomiting. Otherwise no complaints. drain with 35 cc, will maintain until tomorrow. OOB today, soft collar Review of Systems All systems reviewed & are unremarkable except as noted in HPI & below. Physical Exam . * General: Alert and oriented, no acute distress * Constitutional: well-developed, well-nourished. * Respiratory: Normal respiratory effort, no distress * Gastrointestinal: No tenderness to palpation, no rigidity or guarding. * Skin: No rash or lesion. * Neurologic: Grossly normal * Musculoskeletal: Surgical dressing CDI. Cervical spine region without obvious deformity or overlying skin changes. Minimal tenderness of surgical region, otherwise no tenderness b/l buttock or LE. AROM cervical rotation with minimal pain. AROM bilateral upper extremity intact. AROM b/l hip flexion, knee flexion/extension, ankle flexion/extension intact. Sensation intact plantar/dorsal foot. Brisk capillary refill. Results & Data Results & Data Laboratory Results . Diagnostic Findings . Cervical Spine X-Ray 06/26/25 00:00 FL cervical 2-3V CLINICAL HISTORY: C SPINE DISCECTOMY/FUSION COMPARISON STUDY: MR cervical spine 06/25/2025 FLUOROSCOPY TIME: 2 minutes and 7.8 seconds FLUOROSCOPY IMAGES: 24 EXPOSURE DOSE: 12.173 mGy FINDINGS: Endotracheal tube is present. Anterior plate and screw fusion with discectomy changes noted at what appears to be the C4-C7 levels. Hardware appears intact. Alignment appears satisfactory. Overlying surgical clips are present. IMPRESSION: Fluoroscopic assistance as above. ACT 112: Negative or not required by law. Electronically signed by: Adilson Saab M.D. 06/27/2025 7:36 AM PG Care Time/CCT Total # of Minutes Spent Total Time Spent with Patient: Total time spent is greater than 50% in coordination of care (as documented) at patient's floor/unit and/or counseling patient: Coding Level of Care Code 52892 Post Operative Follow-Up Diagnoses Cervical cord myelomalacia G95.89 Lower extremity weakness R29.898
[2025-06-27] MEDS ORDERED: Nursing to Pharmacy Communication SCH (13:15)
[2025-06-27] MEDS: DOCUSATE SODIUM/SENNA 50/8.6MG TAB PO SCH (20:45)
[2025-06-27] MEDS: LOSARTAN POTASSIUM 50 MG TAB PO SCH (20:48)
[2025-06-27] MEDS: cloBAZam 5 MG TAB PO ONE (23:23)
[2025-06-28] MEDS: INSULIN ASPART PER UNIT CHARGE SC SCH (01:44)
[2025-06-28] MEDS: CYCLOBENZAPRINE HCL 10 MG TAB PO STA (02:03)
[2025-06-28] MEDS: POLYETHYLENE (MIRALAX) 17 GM PACK PO SCH (05:22)
[2025-06-28 06:12] LABS: Hematocrit (blood only) 34.5 % (37.0-47.0); Hemoglobin 12.0 g/dL (12.0-16.0); Mean Corpuscular Hemoglobin 31.5 pg (25.0-34.0); Mean Corpuscular Volume 90.6 fL (80.0-100.0); Platelet Count 152 K/uL (130-400); RDW Standard Deviation 43.4 fL (36.4-46.3); Red Blood Count 3.81 M/uL (4.20-5.40); White Blood Count 6.34 K/ul (4.8-10.8)
[2025-06-28 06:36] LABS: Alanine Aminotransferase 8.0 U/L (7-52); Albumin Globulin Ratio 1.8 (0.9-2); Albumin Level 3.8 gm/dl (3.4-5.0); Alkaline Phosphatase 58.0 U/L (34-104); Anion Gap 7.0 (3-11); Bilirubin,Total 0.4 mg/dl (0.2-1.0); Blood Urea Nitrogen 9.0 mg/dl (6-23); Calcium 7.7 mg/dl (8.6-10.3); Carbon Dioxide 28.0 mmol/L (21-32); Chloride 103.0 mmol/L (98-107); Creatinine Clr Calc Pharmacy 55.1 ml/min; Globulin 2.1 gm/dl (2.5-4.0); Glucose 88.0 mg/dl (70-99(Fasting)); Potassium 3.3 mmol/L (3.5-5.1); Sodium 138.0 mmol/L (136-145); Total Protein 5.9 gm/dl (6.0-8.3)
--- NOTE | 2025-06-28 08:47 | Pharmacy Report ---
Pharmacy Glycemic Short Note 2 - Date of Service June 28, 2025 - Glycemic Short BSG Results (Last 24 hours): 06/27/25 06/27/25 06/27/25 12:36 16:18 20:26 Glucose POC Glucose 154 H 111 H 86 06/28/25 06/28/25 06/28/25 01:26 05:25 07:39 Glucose 88 POC Glucose 104 H 89 OUTPATIENT ANTIDIABETIC REGIMEN: * Omnipod Insulin pump * Basal 0.3units/hr * Bolus CF 100, CR 30 * TDD ~15units/day ASSESSMENT: 06/28 * Patient received total of 8 units of insulin yesterday, of which 6 units were basal insulin. Had held PM basal insulin last evening (had been dose to make up from day prior). * BSG stable this AM 88 mg/dL - will assess how patient is feeling today/eating and plan to add on basal later this morning 06/27 * POD1 spinal surgery last evening. Patient missed HS basal dose d/t being in OR and also received IV Dexamethasone resulting in hyperglycemia this morning, BG 233mg/dl. * Will give basal dose now to make up for missed dose and cover steroids, and resume normal dose tonight, unless patient brings in pump supplies, then pump may be resumed this evening. 06/26 * 64 yo F, PMH T2DM, CVA, Hypothyroidism, HTN, HL, CKD Right-sided craniotomy/lobotom, with complaints weakness of legs, head, neck with inability to support herself. * Patient does not have insulin pump supplies, so using basal bolus insulin similar to her pump settings while inpatient. PLAN FOR INPATIENT GLYCEMIC CONTROL: * Hold outpatient insulin pump * Basal insulin * Lantus 4-5 units once daily * Bolus insulin * NovoLog per scale ACHS or Q6hrs while NPO * Goal Range: Low 110 mg/dL - High 140 mg/dL * Correction Factor: 100 mg/dL/unit * Nutritional / Prandial insulin per carb ratio of 1 unit per 30 grams CHO consumed
[2025-06-28] MEDS: POTASSIUM CHLORIDE CRTAB 20 MEQ TABCR PO SCH (08:49)
--- NOTE | 2025-06-28 13:04 | Hospitalist Progress Note ---
Date of Service June 28, 2025 Assessment & Plan (1) Type 1 diabetes mellitus: (2) Hyperlipidemia: (3) Hypothyroidism: (4) Weakness: Plan 64 year old female with past medical history significant for diabetes, CVA, hypothyroidism, hypertension,hyperlipidemia, CKD, right-sided cran iotomy/lobotomy reportedly for history epilepsy who presents with complaints of inability to support her self and weakness of legs as well as head and neck with inability to support self. She has experienced this multiple times over the past few months and it seems she has not sought medical attention with most recent episode being in the morning prior to arrival to ED. No arm weakness, numbness, tingling, lightheadedness, vision change. No fevers, chills, chest pain, shortness of breath, recent illness, abdominal pain, diarrhea or other symptoms. No trauma. Noted to be retaining 800 cc of urine in ED Ridley placed. ##S/P ACDF C4-7 (06/27/25) Bilateral lower extremity and head and neck weakness ruled out cord compression, ruled out [facility] Bates (Although the latter would be an ascending process), cervical cord myelomalacia, lower ext. weakness. -Neurochecks -supportive care per ortho spine surgery -no ABLA with stable H/H -CTA head and neck with moderate stenosis internal carotid and basilar -TFTs WNL -Tick panel pending -B12/folate WNL -MRI brain with no acute intracranial findings -[facility] MRI Spine with critical cervical and lumbar stenosis -Postoperative supportive care -resume chemoprophylaxis on POD #3 per ortho spine (resume 06/29/25) as surgery was shortly after MN on 06/27/25 ##Urinary retention with noted retention >800ml during presentation to ED on 06/25/25 -s/p Ridley insertion, will maintain until patient more active and receptive with PT then voiding trial ##Diabetes -BSG ACHS with pharm consult ##Hypothyroidism -Levothyroxine ##Hypertension -cont amlodipine, Cozaar ##hyperlipidemia -CTA neck wtih 50% stenosis of the mid basilar artery -Crestor ##History epilepsy -clobazam DVT prophylaxis: start on 06/29/25 Diet: CC Disposition: pending progress with PT in post operative period Admission and Anticipated Discharge Date Admission Date: June 25, 2025 Subjective Patient resting with eyes closed this am. C/O left sided neck pain related to incisional site. Reports she has no motor strength weakness of BL lower legs compared to her initial presentation to the hospital. Review of Systems Review of Systems: All systems reviewed & are unremarkable except as noted in Subjective Physical Exam Physical Exam: GENERAL APPEARANCE: A&O. Sitting in bed. NAD. SKIN: Normal color without rashes or lesions.Normal turgor. HEENT: Head AT/NC. Buccal mucosa is moist and pink. NECK: Dressing preset to left sided neck area C/D/I with JOSE DANIEL drain present draining no drainage. HEART: RRR without m/g/r. LUNGS: Normal inspiratory effort. CTA without w/r/r. No stridor with auscultation of neck. ABDOMEN: No guarding or rigidity. Normoactive BS in all four quadrants. Abdomen soft and NT. MSK: No bony gross/deformities throughout. ROM intact. EXTREMITIES: No edema, No peripheral cyanosis. Neuro: CN 2-12 grossly intact. No focal neuro deficits PSYCHIATRIC: Normal affect. Eye contact is good. Speech is normal rate and content. Responses are appropriate. Results & Data Results & Data Vital Signs (Past 12 Hours) Vital Signs Temp Pulse Resp BP Pulse Ox O2 Del Method 06/28/25 07:40 36.6 C 76 16 144/69 H 92 Room Air 06/28/25 07:24 76 16 93 Room Air 06/28/25 05:34 37.2 C 81 16 170/74 H 96 Room Air 06/28/25 03:34 83 16 96 Room Air 06/28/25 01:25 36.8 C 74 14 137/73 97 Room Air Laboratory Results Labs reviewed: CBC, CMP PG Care Time/CCT Total # of Minutes Spent Total Time Spent with Patient: Total time spent is greater than 50% in coordination of care (as documented) at patient's floor/unit and/or counseling patient: Coding Level of Care Code 73420 SUB INP/OBS CARE 2/35MIN Diagnoses Type 1 diabetes mellitus without complication E10.9 Diabetes mellitus complication status: without complication Mixed hyperlipidemia E78.2 Hyperlipidemia type: mixed hyperlipidemia Postoperative hypothyroidism E89.0 Hypothyroidism type: postoperative Weakness R53.1 (1) Type 1 diabetes mellitus Diabetes mellitus complication status: without complication Qualified Code(s): E10.9 - Type 1 diabetes mellitus without complications (2) Hyperlipidemia Hyperlipidemia type: mixed hyperlipidemia Qualified Code(s): E78.2 - Mixed hyperlipidemia (3) Hypothyroidism Hypothyroidism type: postoperative Qualified Code(s): E89.0 - Postprocedural hypothyroidism
--- NOTE | 2025-06-28 16:24 | Orthopedic Progress Note ---
Date of Service June 28, 2025 Assessment & Plan (1) Cervical stenosis of spine: (2) Lower extremity weakness: (3) Lumbar stenosis: (4) Cervical cord myelomalacia: Plan * Continue Current Treatment * S/p ACDF C4-7 * (+) drain, removed. * Weight bearing status: WBAT * Neck ROM as tolerated * Soft collar for comfort * Daily treatment: Physical Therapy/ Occupational Therapy per protocol * Pain control * Continue to monitor for ABLA * Disposition: TBD * Ok to resume DVT ppx on POD 3 * Office/hospital f/u 2 weeks for progress check and staple/suture removal * Remainder care per primary team Subjective . Active Problems: S/p ACDF C4-7 POD 2 64y/o female s/p ACDF C4-7. Doing well overall, pain managed and improved function. Marked improvement of lower extremity AROM. Denies fever/chills, chest pain/SOB, nausea/vomiting. Otherwise no complaints. drain with 20 cc, from 06/27 [id number]. Will remove today. OOB today, soft collar Review of Systems All systems reviewed & are unremarkable except as noted in HPI & below. Physical Exam . * General: Alert and oriented, no acute distress * Constitutional: well-developed, well-nourished. * Respiratory: Normal respiratory effort, no distress * Gastrointestinal: No tenderness to palpation, no rigidity or guarding. * Skin: No rash or lesion. * Neurologic: Grossly normal * Musculoskeletal: Surgical dressing CDI. Cervical spine region without obvious deformity or overlying skin changes. Minimal tenderness of surgical region, otherwise no tenderness b/l buttock or LE. AROM cervical rotation with minimal pain. AROM bilateral upper extremity intact. AROM b/l hip flexion, knee flexion/extension, ankle flexion/extension intact. Sensation intact plantar/dorsal foot. Brisk capillary refill. Results & Data Results & Data Laboratory Results Laboratory Results - last 24 hr 06/27/25 06/28/25 06/28/25 20:26 01:26 05:25 WBC 6.34 RBC 3.81 L Hgb 12.0 Hct 34.5 L MCV 90.6 MCH 31.5 MCHC 34.8 RDW Std Deviation 43.4 RDW Coeff of Ramandeep 13.0 Plt Count 152 MPV 9.4 Sodium 138 Potassium 3.3 L Chloride 103 Carbon Dioxide 28 Anion Gap 7 BUN 9 Creatinine 0.75 Est Cr Clr Drug Dosing 55.1 eGFR 89.40 BUN/Creatinine Ratio 12.0 Glucose 88 POC Glucose 86 104 H Calcium 7.7 L Total Bilirubin 0.4 AST 23 ALT 8 Alkaline Phosphatase 58 Total Protein 5.9 L Albumin 3.8 Globulin 2.1 L Albumin/Globulin Ratio 1.8 06/28/25 06/28/25 06/28/25 07:39 11:24 16:20 WBC RBC Hgb Hct MCV MCH MCHC RDW Std Deviation RDW Coeff of Ramandeep Plt Count MPV Sodium Potassium Chloride Carbon Dioxide Anion Gap BUN Creatinine Est Cr Clr Drug Dosing eGFR BUN/Creatinine Ratio Glucose POC Glucose 89 80 85 Calcium Total Bilirubin AST ALT Alkaline Phosphatase Total Protein Albumin Globulin Albumin/Globulin Ratio . Diagnostic Findings . Chest X-Ray 06/25/25 13:31 XR chest 1V portable HISTORY: 64 years-old Female weakness acute weakness COMPARISON: None TECHNIQUE: AP view of the chest FINDINGS: Cardiomediastinal and hilar silhouettes are within normal limits. No pneum othorax, pleural effusion, airspace consolidation or pulmonary edema. Bones of the chest appear grossly intact. IMPRESSION: No acute process. ACT 112: Negative or not required by law. The above report was generated using voice recognition software. It may contain grammatical, syntax or spelling errors. Electronically signed by: Adilson Saab M.D. 06/25/2025 2:[address] 06/25/25 13:38 CT head/brain wo con CLINICAL HISTORY: 64 years-old Female with neuro deficit, acute stroke suspected. Acute stroke like symptoms TECHNIQUE: Multiple axial CT images of the head were obtained without contrast. A dose lowering technique was utilized adhering to the principles of ALARA. COMPARISON: CTA head same day FINDINGS: No acute intracranial hemorrhage, midline shift, intracranial mass, hydrocephalus, territorial ischemia or abnormal extra-axial collection. Involutional changes. Large area of right MCA distribution encephalomalacia with right-sided craniotomy changes. Trace mastoid effusions. Mild mucosal thickening of the ethmoid air cells. IMPRESSION: 1. No acute intracranial abnormality. 2. 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 ACT 112: Negative or not required by law. The above report was generated using voice recognition software. It may contain grammatical, syntax or spelling errors. Electronically signed by: Adilson Saab M.D. 06/25/2025 2:11 PM Head CTA 06/25/25 13:38 CTA ANGIOGRAPHY OF THE HEAD CLINICAL HISTORY: neuro deficit, acute stroke suspected COMPARISON STUDY: No previous studies for comparison. TECHNIQUE: Helical axial images of the head were obtained following uneventful intravenous administration of 115 cc of Optiray. Sagittal and coronal reconstructions were viewed as well as maximal intensity projections on an independent 3-D workstation. Automated exposure control was utilized for the s sarady. A dose lowering technique was utilized adhering to the principles of ALARA. CT DOSE: 927.13 mGy.cm FINDINGS: Please note that the head CT will be reported separately. No acute intracranial hemorrhage is present. A right sided craniotomy is noted with right temporal encephalomalacia. Associated dilatation of the right lateral ventricle is noted. These findings are chronic. The bilateral M1, M2, A1 and A2 segments are patent. There is moderate stenosis of the right supraclinoid ICA as well as the basilar artery. No large vessel occlusion is identified. The intracranial portions of the vertebral arteries are patent. The bilateral posterior cerebral artery are patent. There is no intracranial aneurysm. IMPRESSION: 1. No large vessel occlusion. No intracranial aneurysm. 2. Moderate stenosis of the right supraclinoid internal carotid and basilar arteries. 3. Status post right craniotomy. Right temporal lobe encephalomalacia with associated dilatation of the right lateral ventricle which is chronic. ACT 112: Negative or not required by law. Electronically signed by: Brandon Almeiad M.D. 06/25/2025 2:12 PM Neck CTA 06/25/25 13:38 CT ANGIOGRAPHY OF THE NECK WITH CONTRAST CLINICAL HISTORY: neuro deficit, acute stroke suspected COMPARISON STUDY: No previous studies for comparison. Technique: CT angiography of the carotid and vertebral arteries was obtained using 115 cc Optiray and 3D reconstruction on an independent workstation. NASCET criteria was utilized. Automated exposure control was utilized for the study. A dose lowering technique was utilized adhering to the principles of ALARA. CT DOSE: Findings: The lung apices are unremarkable in appearance. No significant thyroid tissue is visualized. There is no pathologic neck adenopathy. There is an opacified right ethmoid air cell. There are postsurgical changes present within the right temporal lobe with right temporal lobe encephalomalacia There is no evidence of hemodynamically significant carotid stenosis. There is no evidence of carotid dissection. On image #[id number], hyperdense focus adjacent the medial aspect of the left vertebral artery at the C5-6 level. This is favored to represent a small osteophytic bone fragment as opposed to a short segment dissection. There is mild deformity of the vertebral at this level. Otherwise there is no evidence of vertebral artery stenosis or other findings to indicate dissection. There is a 50% stenosis of the mid basilar artery. IMPRESSION: 1. No evidence of carotid artery stenosis or dissection 2. 50% stenosis of the mid basilar artery 3. Double lumen appearance of the left vertebral artery at the C5-C6 level as visualized image #[id number]. A deformity of the vertebral artery secondary to an osteophytic fragment is favored over a short segment dissection. ACT 112: Negative or not required by law. Electronically signed by: Antwan Ivory M.D. 06/25/2025 2:20 PM Brain MRI 06/25/25 14:19 Exam(s): MRI HEAD Without Contrast EXAM: MR Head Without Intravenous Contrast CLINICAL HISTORY: Reason for exam: cannot move head, neck or legs, weakness. TECHNIQUE: Magnetic resonance images of the head/brain without intravenous contrast in multiple planes. COMPARISON: CT, CTA 06/25/2025 FINDINGS: There is a right-sided craniotomy with resection cavity in the right temporal lobe and surrounding gliosis, associated with ex vacuo enlargement of the right lateral ventricle. There is no mass effect or midline shift. There is no diffusion restriction to suggest acute cerebral ischemia. There are no significant chronic small-vessel ischemic changes. There is no evidence of acute intracranial hemorrhage. There is no hydrocephalus. There is mucosal thickening within the posterior right ethmoids. Sinuses and mastoids are otherwise unremarkable. IMPRESSION: No acute intracranial findings. Electronically signed by: Kim Us M.D. 06/25/25 21:44 PM Cervical Spine MRI 06/25/25 14:19 Exam(s): MRI C SPINE EXAM: MR Cervical Spine Without Intravenous Contrast CLINICAL HISTORY: Reason for exam: cannot move head, neck or legs, weakness. TECHNIQUE: Magnetic resonance images of the cervical spine without intravenous contrast in multiple planes. COMPARISON: Prior CT angiogram of the neck from June 25 2025. FINDINGS: This study is limited secondary to motion artifact. Vertebrae: There are 7 cervical type vertebral bodies with a mild generalized curved to the right and straightening normal cervical lordosis. There is normal vertebral body height and alignment. The bone marrow signal is heterogeneous with reactive endplate changes. No acute fracture. There is narrowing of the spinal canal secondary to congenitally short pedicles. There is mild to advanced facet arthropathy with mild to moderate synovitis, most significant at the left C3-4 facet joint. Spinal cord: There is flattening the ventral cord at C3-4, C4-5, C5-6 and C6-7 with focal area of myelomalacia at C5-6 without evidence of cord edema. Soft tissues: The cervical flow voids are intact. DISCS/SPINAL CANAL/NEURAL FORAMINA: C2-C3: The intervertebral disc is normal. C3-C4: There is mild disc degeneration with annular disc bulge flattening the ventral cord without evidence of abnormal cord signal and causing a severe spinal canal stenosis with AP diameter measuring 7.1 mm. C4-C5: Moderate disc degeneration with annular disc bulge flattening the ventral cord without evidence of abnormal cord signal and causing a critical spinal canal stenosis with AP diameter measuring 6.1 mm. C5-C6: Advanced disc degeneration with annular disc bulge flattening the ventral cord with focal areas of myelomalacia a causing a critical spinal canal stenosis with AP diameter measuring 5.6 mm. C6-C7: Advanced disc degeneration with annular disc bulge flattening the ventral cord without evidence of cord signal and causing a critical spinal canal stenosis with AP diameter 6.6 mm. C7-T1: The intervertebral disc is normal. IMPRESSION: 1. Advanced disc degeneration at C5-6, C6-7: Moderate disc degeneration at C4-5 and mild disc degeneration at C3-4 with annular disc bulging flattening the ventral cord with areas of focal myelomalacia at C5-6. No evidence of cord edema. 2. There is a critical spinal canal stenosis at C4-5, C5-6 and C6-7 and severe stenosis at C3-4 with a congenitally narrow spinal canal. 3. The neural foramina are poorly visualized secondary to motion artifact. 4. There is mild to advanced facet arthropathy with mild to moderate synovitis, most significant at the left C3-4 facet joint. 5. No evidence of fracture, infection, tumor or arachnoiditis. Electronically signed by: Qing Fair MD 06/25/25 22:50 PM Lumbar Spine MRI 06/25/25 14:19 Exam(s): MRI L SPINE Without Contrast EXAM: MR Lumbar Spine Without Intravenous Contrast CLINICAL HISTORY: Reason for exam: cannot move head, neck or legs, weakness. TECHNIQUE: Magnetic resonance images of the lumbar spine without intravenous contrast in multiple planes. COMPARISON: No relevant prior studies available. FINDINGS: There is normal lumbar lordosis and vertebral body height. There is no acute fracture or traumatic subluxation. There is no discitis. Small benign intraosseous hemangiomas are noted at the L1, L2, and L3 levels. Conus medullaris terminates opposite L1 and is normal in caliber and signal. There is multilevel disc desiccation and disc degeneration with disc height loss greatest at the L4-L5 level. There is multilevel facet degeneration. L1-L2: Mild disc degeneration. Facet degeneration. No spinal canal stenosis. No significant foraminal narrowing. L2-L3: Mild disc degeneration. Marked facet degeneration with ligamentum flavum thickening. Grade 1 anterolisthesis of L2 measuring 3 mm. Moderate spinal canal stenosis with narrowing of the lateral recesses and disc material abutting the bilateral traversing L3 nerve roots. Severe left and [id number] right foraminal narrowing. L3-L4: Mild disc degeneration. Marked facet degeneration. Mild canal stenosis with narrowing of the lateral recesses and disc material abutting the traversing bilateral L4 nerve roots. Severe bilateral foraminal narrowing, right worse than left. L4-L5: Moderate disc degeneration. Disc bulging. Marked facet degeneration. No significant spinal canal stenosis. Moderate bilateral foraminal narrowing. L5-S1: Mild disc degeneration. Facet degeneration. No spinal canal stenosis. Mild bilateral foraminal narrowing. Sacroiliac joints are normally aligned. Paravertebral soft tissues are unremarkable. IMPRESSION: 1. Multilevel degenerative changes without acute osseous abnormality. 2. Varying degrees of spinal canal stenosis, moderate at L2-L3. 3. Severe left foraminal narrowing L2-L3, severe bilateral foraminal narrowing L3-L4, moderate bilateral foraminal narrowing L4-L5. 4. Additional [id number] findings as noted above. Electronically signed by: Kim Us M.D. 06/25/25 20:18 PM Thoracic Spine MRI 06/25/25 14:19 Exam(s): MRI T SPINE Without Contrast EXAM: MR Thoracic Spine Without Intravenous Contrast CLINICAL HISTORY: Reason for exam: cannot move head, neck or legs, weakness. TECHNIQUE: Magnetic resonance images of the thoracic spine without intravenous contrast in multiple planes. COMPARISON: No relevant prior studies available. FINDINGS: Vertebrae: Unremarkable. No acute fracture. Discs/spinal canal/neural foramina: No acute findings. No significant disc disease. No spinal canal stenosis. Spinal cord: Unremarkable. Normal signal. Soft tissues: Unremarkable. IMPRESSION: Unremarkable thoracic spine MRI. Electronically signed by: Kim Us M.D. 06/25/25 21:28 PM Cervical Spine X-Ray 06/26/25 00:00 FL cervical 2-3V CLINICAL HISTORY: C SPINE DISCECTOMY/FUSION COMPARISON STUDY: MR cervical spine 06/25/2025 FLUOROSCOPY TIME: 2 minutes and 7.8 seconds FLUOROSCOPY IMAGES: 24 EXPOSURE DOSE: 12.173 mGy FINDINGS: Endotracheal tube is present. Anterior plate and screw fusion with discectomy changes noted at what appears to be the C4-C7 levels. Hardware appears intact. Alignment appears satisfactory. Overlying surgical clips are present. IMPRESSION: Fluoroscopic assistance as above. ACT 112: Negative or not required by law. Electronically signed by: Adilson Saab M.D. 06/27/2025 7:36 AM PG Care Time/CCT Total # of Minutes Spent Total Time Spent with Patient: Total time spent is greater than 50% in coordination of care (as documented) at patient's floor/unit and/or counseling patient: Coding Level of Care Code 89767 Post Operative Follow-Up Diagnoses Cervical stenosis of spine M48.02 Lower extremity weakness R29.898 Lumbar stenosis M48.061 Cervical cord myelomalacia G95.89
[2025-06-28] MEDS: cloBAZam 5 MG TAB PO SCH (20:45)
[2025-06-28] MEDS ORDERED: LANTUS PER UNIT CHARGE SC SCH (21:00)
[2025-06-28] MEDS: LANTUS PER UNIT CHARGE SC SCH (21:20)
--- NOTE | 2025-06-29 08:15 | Orthopedic Progress Note ---
Date of Service June 29, 2025 Assessment & Plan (1) Cervical stenosis of spine: (2) Lower extremity weakness: (3) Lumbar stenosis: (4) Cervical cord myelomalacia: Plan * Continue Current Treatment * S/p ACDF C4-7 * Weight bearing status: WBAT * Neck ROM as tolerated * Soft collar for comfort * Ok for dressing changes PRN * Ok to shower * Daily treatment: Physical Therapy/ Occupational Therapy per protocol * Pain control * Continue to monitor for ABLA * Disposition: TBD * Ok to resume DVT ppx on POD 3 * Office/hospital f/u 2 weeks for progress check and staple/suture removal * Remainder care per primary team Subjective Active Problems: S/p ACDF C4-7 POD 3 64y/o female s/p ACDF C4-7. Doing well overall, pain managed and improved function. Marked improvement of lower extremity AROM. Denies fever/chills, chest pain/SOB, nausea/vomiting. Otherwise no complaints. Drain removed yesterday, site CDI. Review of Systems All systems reviewed & are unremarkable except as noted in HPI & below. Physical Exam * Musculoskeletal: Surgical dressing CDI. Cervical spine region without obvious deformity or overlying skin changes. Minimal tenderness of surgical region, otherwise no tenderness b/l buttock or LE. AROM cervical rotation with minimal pain. AROM bilateral upper extremity intact. AROM b/l hip flexion, knee flexion/extension, ankle flexion/extension intact. Sensation intact plantar/dorsal foot. Brisk capillary refill. Results & Data Results & Data Laboratory Results . Diagnostic Findings . PG Care Time/CCT Total # of Minutes Spent Total Time Spent with Patient: Total time spent is greater than 50% in coordination of care (as documented) at patient's floor/unit and/or counseling patient: Coding Level of Care Code 13035 Post Operative Follow-Up Diagnoses Cervical stenosis of spine M48.02 Lower extremity weakness R29.898 Lumbar stenosis M48.061 Cervical cord myelomalacia G95.89
[2025-06-29 11:11] LABS: Hematocrit (blood only) 35.2 % (37.0-47.0); Hemoglobin 12.5 g/dL (12.0-16.0); Mean Corpuscular Hemoglobin 31.4 pg (25.0-34.0); Mean Corpuscular Volume 88.4 fL (80.0-100.0); Platelet Count 154 K/uL (130-400); RDW Standard Deviation 42.3 fL (36.4-46.3); Red Blood Count 3.98 M/uL (4.20-5.40); White Blood Count 6.15 K/ul (4.8-10.8)
[2025-06-29 13:39] LABS: Anion Gap 9.0 (3-11); Blood Urea Nitrogen 10.0 mg/dl (6-23); Calcium 8.2 mg/dl (8.6-10.3); Carbon Dioxide 28.0 mmol/L (21-32); Chloride 99.0 mmol/L (98-107); Creatinine Clr Calc Pharmacy 55.1 ml/min; Glucose 111.0 mg/dl (70-99(Fasting)); Potassium 3.0 mmol/L (3.5-5.1); Sodium 136.0 mmol/L (136-145)
--- NOTE | 2025-06-29 13:58 | Pharmacy Report ---
Pharmacy Glycemic Short Note 2 - Date of Service June 29, 2025 - Glycemic Short BSG Results (Last 24 hours): 06/28/25 06/28/25 06/29/25 16:20 20:32 07:45 POC Glucose 85 97 74 06/29/25 12:29 POC Glucose 120 H OUTPATIENT ANTIDIABETIC REGIMEN: * Omnipod Insulin pump * Basal 0.3units/hr * Bolus CF 100, CR 30 * TDD ~15units/day ASSESSMENT: 06/29 * Lexus received only 3 units of SC insulin yesterday (Lantus 3 units at bedtime). * Fasting BSG lower than previous days (74 mg/dL) but trending up at lunchtime. Will scale HS basal dose. 06/28 * Patient received total of 8 units of insulin yesterday, of which 6 units were basal insulin. Had held PM basal insulin last evening (had been dose to make up from day prior). * BSG stable this AM 88 mg/dL - will assess how patient is feeling today/eating and plan to add on basal later this morning 06/27 * POD1 spinal surgery last evening. Patient missed HS basal dose d/t being in OR and also received IV Dexamethasone resulting in hyperglycemia this morning, BG 233mg/dl. * Will give basal dose now to make up for missed dose and cover steroids, and resume normal dose tonight, unless patient brings in pump supplies, then pump may be resumed this evening. 06/26 * 64 yo F, PMH T2DM, CVA, Hypothyroidism, HTN, HL, CKD Right-sided craniotomy/lobotom, with complaints weakness of legs, head, neck with inability to support herself. * Patient does not have insulin pump supplies, so using basal bolus insulin similar to her pump settings while inpatient. PLAN FOR INPATIENT GLYCEMIC CONTROL: * Hold outpatient insulin pump * Basal insulin * Lantus SC qHS per BSG scale: 3 units for BSG <150, 5 units for BSG 150 mg/dL or more * Bolus insulin * NovoLog per scale ACHS or Q6hrs while NPO * Goal Range: Low 110 mg/dL - High 140 mg/dL * Correction Factor: 100 mg/dL/unit * Nutritional / Prandial insulin per carb ratio of 1 unit per 30 grams CHO consumed
[2025-06-29 14:17] LABS: Magnesium 1.9 mg/dl (1.7-2.4)
--- NOTE | 2025-06-29 14:40 | Hospitalist Progress Note ---
Date of Service June 29, 2025 Assessment & Plan (1) Type 1 diabetes mellitus: (2) Hyperlipidemia: (3) Hypothyroidism: (4) Weakness: Plan 64 year old female with past medical history significant for diabetes, CVA, hypothyroidism, hypertension,hyperlipidemia, CKD, right-sided cran iotomy/lobotomy reportedly for history epilepsy who presents with complaints of inability to support her self and weakness of legs as well as head and neck with inability to support self. She has experienced this multiple times over the past few months and it seems she has not sought medical attention with most recent episode being in the morning prior to arrival to ED. No arm weakness, numbness, tingling, lightheadedness, vision change. No fevers, chills, chest pain, shortness of breath, recent illness, abdominal pain, diarrhea or other symptoms. No trauma. Noted to be retaining 800 cc of urine in ED Ridley placed. ##S/P ACDF C4-7 (06/27/25) Bilateral lower extremity and head and neck weakness ruled out cord compression, ruled out Maybee Bates (Although the latter would be an ascending process), cervical cord myelomalacia, lower ext. weakness. -Neurochecks -supportive care per ortho spine surgery -no ABLA with stable H/H -CTA head and neck with moderate stenosis internal carotid and basilar -TFTs WNL -Tick panel pending -B12/folate WNL -MRI brain with no acute intracranial findings -[facility] MRI Spine with critical cervical and lumbar stenosis -Postoperative supportive care -resume chemoprophylaxis on POD #3 per ortho spine, start SQ Heparin -documented temperature 38.0 this am, without clinical signs of infection (denies SOB, cough, lower ext swelling, no tachycardia, hypotension, no surgical site infection signs), possible atelectasis, CBC without leukocytosis, procal WNL, add UA, will monitor ##hypokalemia -K 3.0, replete with oral K -Mg 1.9 ##Urinary retention with noted retention >800ml during presentation to ED on 06/25/25 -s/p Ridley insertion, will maintain until patient more active and receptive with PT then voiding trial ##Diabetes -BSG ACHS with pharm consult, low dose basal at hs per pharmacy ##Hypothyroidism -Levothyroxine ##Hypertension -cont amlodipine, Cozaar ##hyperlipidemia -CTA neck wtih 50% stenosis of the mid basilar artery -Crestor ##History epilepsy -clobazam DVT prophylaxis: start Heparin 5000 units SQ BID in setting of eGFR of 55 Diet: Clear liquids Disposition: pending progress with PT in post operative period Admission and Anticipated Discharge Date Admission Date: June 25, 2025 Subjective Patient resting in bed this am. Minimally opening eyes. Moving all extremities freely. Take oral Percocet only for pain with reported relief. Still on clear liquids. Needs encouragement to drink. Expresses slight frustration when asked questions during assessment. Review of Systems Review of Systems: All systems reviewed & are unremarkable except as noted in Subjective Physical Exam Physical Exam: GENERAL APPEARANCE: A&O. Sitting up in bed. NAD. SKIN: Normal color without rashes or lesions.Normal turgor. HEENT: Head AT/NC. Buccal mucosa is moist and pink. NECK: Left sided neck incision with steri-strips present-no swelling or drainage noted. HEART: RRR without m/g/r. LUNGS: Normal inspiratory effort. CTA without w/r/r. No stridor with auscultation of neck. ABDOMEN: No guarding or rigidity. Normoactive BS in all four quadrants. Abdomen soft and NT. MSK: No bony gross/deformities throughout. ROM intact. EXTREMITIES: No edema, No peripheral cyanosis. Neuro: CN 2-12 grossly intact. No focal neuro deficits PSYCHIATRIC: Normal affect. Eye contact is good. Speech is normal rate and content. Responses are appropriate. Results & Data Results & Data Vital Signs (Past 12 Hours) Vital Signs Temp Pulse Resp BP Pulse Ox O2 Del Method 06/29/25 08:28 Room Air 06/29/25 07:18 38.0 C H 94 H 16 162/77 H 97 Room Air Laboratory Results Labs reviewed: CBC, BMP, Mg, Procal PG Care Time/CCT Total # of Minutes Spent Total Time Spent with Patient: Total time spent is greater than 50% in coordination of care (as documented) at patient's floor/unit and/or counseling patient: Coding Level of Care Code 40046 SUB INP/OBS CARE 2/35MIN Diagnoses Type 1 diabetes mellitus without complication E10.9 Diabetes mellitus complication status: without complication Mixed hyperlipidemia E78.2 Hyperlipidemia type: mixed hyperlipidemia Postoperative hypothyroidism E89.0 Hypothyroidism type: postoperative Weakness R53.1 (1) Type 1 diabetes mellitus Diabetes mellitus complication status: without complication Qualified Code(s): E10.9 - Type 1 diabetes mellitus without complications (2) Hyperlipidemia Hyperlipidemia type: mixed hyperlipidemia Qualified Code(s): E78.2 - Mixed hyperlipidemia (3) Hypothyroidism Hypothyroidism type: postoperative Qualified Code(s): E89.0 - Postprocedural hypothyroidism
[2025-06-29] MEDS: CARBOHYDRATES FOR HYPOGLYCEMIA PO PRN (21:22)
[2025-06-29] MEDS: HEPARIN SOD 5,000 UNIT/0.5 ML VIAL SQ SCH (21:33)
[2025-06-29] MEDS: MELATONIN 3 MG TAB PO PRN (21:34)
[2025-06-29] MEDS: POTASSIUM CHLORIDE CRTAB 20 MEQ TABCR PO SCH (21:36)
[2025-06-29] MEDS: LANTUS PER UNIT CHARGE SC SCH (21:36)
[2025-06-29] MEDS: ACETAMINOPHEN 500 MG TAB PO PRN (21:37)
[2025-06-30] MEDS: INSULIN ASPART PER UNIT CHARGE SC ONE (02:30)
[2025-06-30 07:02] LABS: Hematocrit (blood only) 35.0 % (37.0-47.0); Hemoglobin 12.5 g/dL (12.0-16.0); Immature Granulocytes # (auto) 0.01 K/uL (0.01-0.20); Immature Granulocytes % (auto) 0.2 %; Mean Corpuscular Hemoglobin 31.2 pg (25.0-34.0); Mean Corpuscular Volume 87.3 fL (80.0-100.0); Platelet Count 154 K/uL (130-400); RDW Standard Deviation 41.2 fL (36.4-46.3); Red Blood Count 4.01 M/uL (4.20-5.40); White Blood Count 4.46 K/ul (4.8-10.8)
[2025-06-30 07:37] LABS: Anion Gap 10.0 (3-11); Blood Urea Nitrogen 17.0 mg/dl (6-23); Calcium 8.5 mg/dl (8.6-10.3); Carbon Dioxide 28.0 mmol/L (21-32); Chloride 99.0 mmol/L (98-107); Creatinine Clr Calc Pharmacy 41.0 ml/min; Glucose 96.0 mg/dl (70-99(Fasting)); Magnesium 2.3 mg/dl (1.7-2.4); Potassium 3.4 mmol/L (3.5-5.1); Sodium 137.0 mmol/L (136-145)
--- NOTE | 2025-06-30 08:54 | Orthopedic Progress Note ---
Date of Service June 30, 2025 Assessment & Plan (1) Cervical stenosis of spine: (2) Lower extremity weakness: (3) Lumbar stenosis: (4) Cervical cord myelomalacia: Plan * Continue Current Treatment * S/p ACDF C4-7 * Weight bearing status: WBAT * Neck ROM as tolerated * Soft collar for comfort * Ok for dressing changes PRN * Ok to shower * Daily treatment: Physical Therapy/ Occupational Therapy per protocol * Pain control * Continue to monitor for ABLA * Disposition: TBD * Ok to resume DVT ppx on POD 3 * Office/hospital f/u 2 weeks for progress check and staple/suture removal * Will follow peripherally * Remainder care per primary team * * Patient seen and examined, incision site unremarkable, maintains appropriate motor strength in the lower extremities. Recommended to the patient to utilize soft collar, mobilize with physical therapy, placement. Patient to follow-up in 2 weeks. Subjective Active Problems: S/p ACDF C4-7 POD 4 64y/o female s/p ACDF C4-7. Doing well overall, pain managed and improved function. Marked improvement of lower extremity AROM, stood with PT yesterday. Denies fever/chills, chest pain/SOB, nausea/vomiting. Otherwise no complaints. Drain removed yesterday, site CDI. Review of Systems All systems reviewed & are unremarkable except as noted in HPI & below. Physical Exam * Musculoskeletal: Surgical dressing CDI. Cervical spine region without obvious deformity or overlying skin changes. Minimal tenderness of surgical region, otherwise no tenderness b/l buttock or LE. AROM cervical rotation with minimal pain. AROM bilateral upper extremity intact. AROM b/l hip flexion, knee flexion/extension, ankle flexion/extension intact. Sensation intact plantar/dorsal foot. Brisk capillary refill. Results & Data Results & Data Laboratory Results . Diagnostic Findings . PG Care Time/CCT Total # of Minutes Spent Total Time Spent with Patient: Total time spent is greater than 50% in coordination of care (as documented) at patient's floor/unit and/or counseling patient: Coding Level of Care Code 78184 Post Operative Follow-Up Diagnoses Cervical stenosis of spine M48.02 Lower extremity weakness R29.898 Lumbar stenosis M48.061 Cervical cord myelomalacia G95.89
--- NOTE | 2025-06-30 13:29 | Communication Note ---
Date of Service: June 30, 2025 Called to bedside for evaluation, report that patient is no longer moving bilateral lower extremity. Since her surgery 06/26, patient has had AROM of bi lateral lower extremity, and was working with PT/OT the last several days. Per report patient refused to work with PT/OT today, and per nursing as recently as 1-2 hours ago patient was actively moving her lower extremities while using bedpan. At time of my examination, patient lying in bed, no acute distress. Reports pain of the neck and bilateral shoulders. Slight active motion at the toes, otherwise no AROM bilateral hip flexion, knee extension, ankle dorsi/plantarflexion. Both legs flaccid to positioning. Sensation is intact throughout all dermatomes of bilateral lower extremity. Patellar reflex intact bilaterally. Discussed with hospital medicine team and Dr. Cobb, STAT cervical MRI ordered. Review of recent lumbar and thoracic MRI by Dr. Cobb again without cord compression that would explain her symptoms. Will continue to follow. Repeat MRI obtained. Formal read pending, however preliminary review shows no cord compression. No indication for further cervical decompression or other surgical procedure. No surgical explanation for her sudden weakness in her bilateral lower extremities. Would recommend further discussion with neurology regarding her symptoms. Will continue to follow.
--- NOTE | 2025-06-30 13:59 | Operative Report ---
PG Post Operative Report Pre & Post Diagnosis Operation Date: 06/26/25 17:45 Pre-Op Diagnosis: Cervical cord myelomalacia; Cervical stenosis of spine Post-Op Diagnosis: Cervical cord myelomalacia; Cervical stenosis of spine I identified the patient and participated in the time-out.: Yes Procedure Operation Date: 06/26/25 17:45 Actual Procedures p Anterior Cervical Discectomy Fusion C4-C5, C5-C6, C6-C7 - Lauri Cobb MD Surgeon Lauri Cobb MD Gauge Maker none Estimated Blood Loss 50 Findings Consistent with Post-Op Diagnosis Specimens None Description of Procedure 1. C4-5 anterior cervical discectomy/decompression and arthrodesis. (59640) 2. C5-6 anterior cervical discectomy/decompression and arthrodesis. (13836) 3. C6-7 anterior cervical discectomy/decompression and arthrodesis. (28292) 4. Insertion of intervertebral cage, C4-5, Medtronic 6 mm x 14 mm x 11 mm. (92521) 5. Insertion of intervertebral cage, C5-6, Medtronic 6 mm x 16 mm x 14 mm. (37750) 6. Insertion of intervertebral cage, C6-7, Medtronic Endoskeleton TC 6 mm x 16 mm x 14 mm. (84145) 7. Anterior plate fixation, Medtronic Bricelyn plate C4-C5-C6-C7. (29111) Patient was taken operating room after adequate anesthesia was carefully positioned supine on the OSI flattop. Patient was then checked for positioning, a preprepped was performed of the cervical spine followed by bringing in fluoroscopy where I marked for the incision to address the 3 cervical levels identified with cervical stenosis. Prep and drape was performed, I began the procedure with a left-sided approach, transverse incision over the C5-6 level to allow access at all 3 levels. I was able to advance down to the anterior aspect of the cervical spine without issue, the location was confirmed fluoroscopically followed by mobilization of soft tissues in this region to allow access at all 3 levels. Starting at the C5-6-7 level, I moved ahead with mobilizing the tissues in this region, I inserted distractor pins at this level under fluoroscopic control. The operative microscope was brought in and I moved to the decompression at this level which included removing the anterior annulus and then moving through the disc space with a thorough discectomy removing cartilage from the endplates. I moved to the back of the interspace where the spondylosis was encountered. I distracted the interspace and then used a high-speed bur to thin and remove the majority of the spondylosis. I used a combination of curettes and Kerrison punches to complete the decompression across the interspace out to the uncinates on both sides completing the decompression. Trial spacers were then utilized, I inserted the spacer from the Medtronic set at this level, we are limited in the number of sizes and types of implants. I moved to the C4-5 level, in a similar fashion then inserted distractor pins at this level under fluoroscopic control. Once again utilizing the microscope after placing the retractors, I then performed a thorough discectomy with removal of cartilage from the endplates and then moving posteriorly where the spondylosis and posterior disc bulge was then thinned and removed across the interspace decompressing the segment. A peek style type implant was then inserted after utilizing trials, tapped into position. The retractor pin was then removed at C4 bone wax was applied, and I then moved to the C5-6 level where the distractor pins were then placed once again using fluoroscopic control. The operative microscope was brought in, I performed a similar annulotomy anteriorly and a thorough discectomy. The posterior aspect of the disc base was identified with the spondylosis, I used a high-speed bur to thin and remove this overhanging spondylosis and then completed decompression down to the dura as with the other 2 levels in a similar fashion out to either side up to the uncinates. Upon completion all levels appear to be well decompressed with each level, I inserted the final spacer at this level without issue. Once these were in place, additional imaging was then performed, I obtained a plate from the 6 Medtronic set, and then did some contouring. I had to remove osteophytes anteriorly at C5-6 and C6-7. Upon doing so I was able to then get the plate to fit well over these levels, this was temporally pinned in place followed by then insertion of screws all of which had excellent purchase at C4-C5-C6 and C7. The locking mechanisms were then engaged, final imaging was performed. Operative site had been irrigated thoroughly. At this point I placed vancomycin powder, a drain was placed and sutured into position followed by then closure using 3-0 Vicryl sutures in 2 layers followed by Steri-Strips and then a sterile dressing. Patient tolerated procedure well was taken recovery room in satisfactory condition. I attest to the content of the Intraoperative Record and any orders documented therein. Any exceptions are noted below.
[2025-06-30 14:33] LABS: Appearance Urine Clear (Clear); Bacteria Urine Automated None Seen (None Seen); Epithelial Cell Urine Auto 0-2 /hpf (0-2); Glucose Urine UA Negative (Negative); WBC Urine Automated 0-5 /hpf (0-5)
--- NOTE | 2025-06-30 14:53 | Pharmacy Report ---
Pharmacy Glycemic Short Note 2 - Date of Service June 30, 2025 - Glycemic Short BSG Results (Last 24 hours): 06/29/25 06/29/25 06/29/25 16:26 21:20 21:42 Glucose POC Glucose 101 H 69 L* 70 06/30/25 06/30/25 06/30/25 00:09 01:45 06:45 Glucose 96 POC Glucose 134 H 119 H 06/30/25 06/30/25 07:52 11:45 Glucose POC Glucose 105 H 89 OUTPATIENT ANTIDIABETIC REGIMEN: * Omnipod Insulin pump * Basal 0.3units/hr * Bolus CF 100, CR 30 * TDD ~15units/day ASSESSMENT: 06/30 * Patient has not received any insulin in last 24 hours - basal held last evening due to hypoglycemia - BSG 69 mg/dL * Blood sugars stable today, despite held basal dose. Will continue with scale for Lantus at HS time. * Contacted provider as patient with no PO intake last couple of days, AG trending up and +ketones in urine - plan to start dextrose fluids so insulin can be continued as patient type 1 diabetic 06/29 * Lexus received only 3 units of SC insulin yesterday (Lantus 3 units at bedtime). * Fasting BSG lower than previous days (74 mg/dL) but trending up at lunchtime. Will scale HS basal dose. 06/28 * Patient received total of 8 units of insulin yesterday, of which 6 units were basal insulin. Had held PM basal insulin last evening (had been dose to make up from day prior). * BSG stable this AM 88 mg/dL - will assess how patient is feeling today/eating and plan to add on basal later this morning 06/27 * POD1 spinal surgery last evening. Patient missed HS basal dose d/t being in OR and also received IV Dexamethasone resulting in hyperglycemia this morning, BG 233mg/dl. * Will give basal dose now to make up for missed dose and cover steroids, and resume normal dose tonight, unless patient brings in pump supplies, then pump may be resumed this evening. 06/26 * 64 yo F, PMH T2DM, CVA, Hypothyroidism, HTN, HL, CKD Right-sided craniotomy/lobotom, with complaints weakness of legs, head, neck with inability to support herself. * Patient does not have insulin pump supplies, so using basal bolus insulin similar to her pump settings while inpatient. PLAN FOR INPATIENT GLYCEMIC CONTROL: * Hold outpatient insulin pump * Basal insulin * Lantus SC qHS 3-5 units * Bolus insulin * NovoLog per scale ACHS or Q6hrs while NPO * Goal Range: Low 110 mg/dL - High 140 mg/dL * Correction Factor: 100 mg/dL/unit * Nutritional / Prandial insulin per carb ratio of 1 unit per 30 grams CHO consumed
--- NOTE | 2025-06-30 15:41 | Magnetic Resonance Report ---
MR cervical spine wo con HISTORY: 64 years-old Female leg weakness s/p surgery chronic neck pain with leg weakness COMPARISON: MRI cervical spine 06/25/2025, fluoroscopic images of the cervical spine 06/26/2025, CTA ne ck 06/25/2025 TECHNIQUE: Multiplanar multisequence MRI of the cervical spine was obtained without IV contrast FINDINGS: Study is mildly motion degraded. Interval postoperative changes of the cervical spine compared to the prior MRI with anterior plate and screw fusion and discectomy at C4-C7. Prevertebral edema and fluid collection is greatest at C2-C4 measuring up to 2.5 x 0.8 x 4.5 cm. No definite epidural fluid colle ctions are seen. Numerous bilateral trace facet effusions. Layering pleural effusions, left right. Ed umair is noted within the supraclavicular tissues with fluid collection/possible hematoma within the le ft neck/radiopaque esophageal recess on image 11 series 6 measuring up to 2.6 cm. No acute fracture, subluxation, endplate erosion or significant bone marrow edema. Subcentimeter foci of increased T2 si gnal within the cervical spinal cord at C5-C6 again noted, likely representing myelomalacia. C2-C3: Small posterior annular disc bulge with [id number] facet arthrosis. The central canal an d left neural foramen are patent. There is unchanged mild right neural foraminal narrowing. C3-C4: Uncovertebral hypertrophy with tiny posterior annular disc bulge. Severe left-sided facet arth rosis. Minimal central canal stenosis, AP dimension of the thecal sac measuring 9 mm. Mild bilateral neural foraminal narrowing is unchanged. C4-C5: Moderate to severe facet arthrosis. Uncovertebral hypertrophy with interval discectomy. AP dim ension of the thecal sac measures 7 mm, previously 6 mm. Mild to moderate central canal stenosis. Rig ht neural foramen is patent. There is unchanged mild left neural foraminal narrowing. C5-C6: Moderate facet arthrosis. Uncovertebral hypertrophy with interval discectomy. AP dimension of the thecal sac measures 8 mm, previously 6 mm. Mild central canal stenosis. Moderate right with mild left neural foraminal narrowing is unchanged. C6-C7: Moderate facet arthrosis. Uncovertebral hypertrophy with central discectomy. AP dimension of t he thecal sac measures 7 mm, previously 6 mm. [id number] central canal stenosis. Moderate bilat eral foraminal narrowing is unchanged. C7-T1: Moderate facet arthrosis. No central canal or neural foraminal narrowing. IMPRESSION: 1. Motion degraded study. 2. Interval postoperative changes of discectomy with anterior plate and screw fusion at C4-C7. 3. There is improved central canal stenosis at several levels with persistent multilevel neural arlene inal narrowing. 4. Postoperative prevertebral edema and fluid collection with possible hematoma within the left neck/ tracheoesophageal recess at the level of the cervicothoracic junction. Follow-up CT soft tissue neck with IV contrast recommended. 5. Probable myelomalacia of the cervical spinal cord again noted at the level of C5-C6. ACT 112: Negative or not required by law. The above report was generated using voice recognition software. It may contain grammatical, syntax o r spelling errors. Electronically signed by: Adilson Saab M.D. 06/30/2025 3:39 PM
[2025-06-30] MEDS: D5W AND NSS 1,000 ML IV SCH (16:49)
--- NOTE | 2025-06-30 17:53 | Hospitalist Progress Note ---
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 She has experienced this multiple times over the past few months and it seems she has not sought medical attention with most recent episode being in the morning prior to arrival to ED. No arm weakness, numbness, tingling, lightheadedness, vision change. No fevers, chills, chest pain, shortness of breath, recent illness, abdominal pain, diarrhea or other symptoms. No trauma. Noted to be retaining 800 cc of urine in ED Ridley placed. ##S/P ACDF C4-7 (06/27/25) Bilateral lower extremity and head and neck weakness ruled out cord compression, ruled out Nita Bates (Although the latter would be an ascending process), cervical cord myelomalacia, lower ext. weakness. -Neurochecks -supportive care per ortho spine surgery -no ABLA with stable H/H -CTA head and neck with moderate stenosis internal carotid and basilar -TFTs WNL -Tick panel pending -B12/folate WNL -MRI brain with no acute intracranial findings -[facility] MRI Spine with critical cervical and lumbar stenosis -Postoperative supportive care -resume chemoprophylaxis on POD #3 per ortho spine, start SQ Heparin -afebrile -ortho re-evaluated patient in setting of decreased MS to lower legs with repeat MRI of c-spine with post op prevertebral edema and fluid collection with possible hematoma at cervicothoracic junction->f/u CT soft tissue neck with IV contrast recommended -case discussed with Dr. Khan and no clear indication for LP at this time ##hypokalemia -K 3.3, cont oral K supp -Mg 1.9 ##Urinary retention with noted retention >800ml during presentation to ED on 06/25/25 -s/p Ridley insertion, will maintain until patient more active and receptive with PT then voiding trial ##Diabetes -BSG ACHS with pharm consult, low dose basal at hs per pharmacy (has not been receiving in setting of low BSG in 70s) -patient has been declining to eat, diet advanced to diabetic diet -BSG have been trending lower with AG at 10 this am and ketones in UA, as she has no been consistently eating add on D5NS at 80ml/hr so basal can be initiated ##Hypothyroidism -Levothyroxine ##Hypertension -cont amlodipine, Cozaar ##hyperlipidemia -CTA neck wtih 50% stenosis of the mid basilar artery -Crestor ##History epilepsy -clobazam DVT prophylaxis: start Heparin 5000 units SQ BID in setting of kidney function Diet: Clear liquids Disposition: pending progress with PT in post operative period Admission and Anticipated Discharge Date Admission Date: June 25, 2025 Subjective Resting in bed this afternoon. States she is ready to go home. Feels that she does not need to participate with PT. When asked to move her legs, she simply looks at her legs and says, "I am not faking it". Nursing reports she did have motor strength in bl LE this am. Has been with movement of BL lower ext since surgery. Demonstrates dorsiflexion and plantar flexion of BL feet with intact sensation. 2+ patellar and achilles reflexes present. Inappropriately smiles at times and states she is not answering my questions. Wants to eat, however per nursing has been reluctant to drink and eat as her throat hurts when she swallows. She is without drooling or stridor. 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 Review of Systems Review of Systems: All systems reviewed & are unremarkable except as noted in Subjective Physical Exam Physical Exam: GENERAL APPEARANCE: A&O. Sitting up in bed. NAD. SKIN: Normal color without rashes or lesions.Normal turgor. HEENT: Head AT/NC. Buccal mucosa is moist and pink. NECK: Left sided neck incision with steri-strips present-no swelling or drainage noted. HEART: RRR without m/g/r. LUNGS: Normal inspiratory effort. CTA without w/r/r. No stridor with auscultation of neck. ABDOMEN: No guarding or rigidity. Normoactive BS in all four quadrants. Abdomen soft and NT. MSK: No bony gross/deformities throughout. ROM intact. EXTREMITIES: No edema, No peripheral cyanosis. +1/5 MS present in bilateral feet. Slight adduction/abduction of quadriceps. Neuro: CN 2-12 grossly intact. No focal neuro deficits. No babinski. PSYCHIATRIC: Normal affect. Eye contact is good. Speech is normal rate and content. Responses are appropriate. Results & Data Results & Data Vital Signs (Past 12 Hours) Vital Signs Temp Pulse Resp BP Pulse Ox O2 Del Method 06/30/25 15:11 36.8 C 93 H 16 176/77 H 97 Room Air 06/30/25 07:40 36.4 C L 73 16 124/76 95 Room Air Laboratory Results Labs reviewed: CBC, BMP, UA PG Care Time/CCT Total # of Minutes Spent Total Time Spent with Patient: Total time spent is greater than 50% in coordination of care (as documented) at patient's floor/unit and/or counseling patient: Coding Level of Care Code 40457 SUB INP/OBS CARE 2/35MIN Diagnoses Type 1 diabetes mellitus without complication E10.9 Diabetes mellitus complication status: without complication Mixed hyperlipidemia E78.2 Hyperlipidemia type: mixed hyperlipidemia Postoperative hypothyroidism E89.0 Hypothyroidism type: postoperative Weakness R53.1 (1) Type 1 diabetes mellitus Diabetes mellitus complication status: without complication Qualified Code(s): E10.9 - Type 1 diabetes mellitus without complications (2) Hyperlipidemia Hyperlipidemia type: mixed hyperlipidemia Qualified Code(s): E78.2 - Mixed hyperlipidemia (3) Hypothyroidism Hypothyroidism type: postoperative Qualified Code(s): E89.0 - Postprocedural hypothyroidism
[2025-06-30] MEDS: SOD PHOSPHATE/SOD BIPHOSPHATE ENEMA 132 ML BTL PR PRN (18:57)
[2025-06-30] MEDS: LANTUS PER UNIT CHARGE SC SCH (22:02)
[2025-07-01 07:35] LABS: Anion Gap 9.0 (3-11); Blood Urea Nitrogen 17.0 mg/dl (6-23); Calcium 8.2 mg/dl (8.6-10.3); Carbon Dioxide 30.0 mmol/L (21-32); Chloride 100.0 mmol/L (98-107); Creatinine Clr Calc Pharmacy 55.1 ml/min; Glucose 133.0 mg/dl (70-99(Fasting)); Potassium 3.8 mmol/L (3.5-5.1); Sodium 139.0 mmol/L (136-145)
--- NOTE | 2025-07-01 09:11 | Pharmacy Report ---
Pharmacy Glycemic Short Note 2 - Date of Service July 01, 2025 - Glycemic Short BSG Results (Last 24 hours): 06/30/25 06/30/25 06/30/25 11:45 16:43 20:26 Glucose POC Glucose 89 105 H 175 H 07/01/25 07/01/25 06:12 07:33 Glucose 133 H POC Glucose 145 H OUTPATIENT ANTIDIABETIC REGIMEN: * Omnipod Insulin pump * Basal 0.3units/hr * Bolus CF 100, CR 30 * TDD ~15units/day ASSESSMENT: 07/01 * Patient received total of 7 units of insulin yesterday, of which 6 units were basal * Fasting BSG 133 mg/dL - will continue with basal at HS time * No change to CF/CR today. Continues with IV dextrose fluids d/t poor PO intake. 06/30 * Patient has not received any insulin in last 24 hours - basal held last evening due to hypoglycemia - BSG 69 mg/dL * Blood sugars stable today, despite held basal dose. Will continue with scale for Lantus at HS time. * Contacted provider as patient with no PO intake last couple of days, AG trending up and +ketones in urine - plan to start dextrose fluids so insulin can be continued as patient type 1 diabetic 06/29 * Lexus received only 3 units of SC insulin yesterday (Lantus 3 units at bedtime). * Fasting BSG lower than previous days (74 mg/dL) but trending up at lunchtime. Will scale HS basal dose. 06/28 * Patient received total of 8 units of insulin yesterday, of which 6 units were basal insulin. Had held PM basal insulin last evening (had been dose to make up from day prior). * BSG stable this AM 88 mg/dL - will assess how patient is feeling today/eating and plan to add on basal later this morning 06/27 * POD1 spinal surgery last evening. Patient missed HS basal dose d/t being in OR and also received IV Dexamethasone resulting in hyperglycemia this morning, BG 233mg/dl. * Will give basal dose now to make up for missed dose and cover steroids, and resume normal dose tonight, unless patient brings in pump supplies, then pump may be resumed this evening. 06/26 * 64 yo F, PMH T2DM, CVA, Hypothyroidism, HTN, HL, CKD Right-sided craniotomy/lobotom, with complaints weakness of legs, head, neck with inability to support herself. * Patient does not have insulin pump supplies, so using basal bolus insulin similar to her pump settings while inpatient. PLAN FOR INPATIENT GLYCEMIC CONTROL: * Hold outpatient insulin pump * Basal insulin * Lantus SC qHS 5-6 units * Bolus insulin * NovoLog per scale ACHS or Q6hrs while NPO * Goal Range: Low 110 mg/dL - High 140 mg/dL * Correction Factor: 100 mg/dL/unit * Nutritional / Prandial insulin per carb ratio of 1 unit per 30 grams CHO consumed
--- NOTE | 2025-07-01 10:44 | Orthopedic Progress Note ---
Date of Service July 01, 2025 Assessment & Plan (1) Cervical stenosis of spine: (2) Lower extremity weakness: (3) Lumbar stenosis: (4) Cervical cord myelomalacia: Plan * Continue Current Treatment * S/p ACDF C4-7 * Repeat MRI without spinal cord compression, no further surgery indicated at this time * Unable to explain waxing/waning lower extremity weakness from a spinal cord/surgical perspective * Encouraged continued mobilization as able * Weight bearing status: WBAT * Neck ROM as tolerated * Soft collar for comfort * Ok for dressing changes PRN * Ok to shower * Daily treatment: Physical Therapy/ Occupational Therapy per protocol * Pain control * Continue to monitor for ABLA * Disposition: Rehab * Given surgical site hematoma would recommend holding heparin * Office/hospital f/u 2 weeks for progress check and staple/suture removal * Will follow peripherally * Remainder care per primary team * * Patient seen and examined, surgical site without any high-grade areas of swelling. Patient has at least 4+ strength in the lower extremities. Review of stat MRI from yesterday does not reveal any cord compression, there is some anterior hematoma formation present. Discussed with radiologist, we will hold on any additional imaging at this time but a potential follow-up CT scan may b e performed. Recommend continued effort at referral to rehab for mobilization and ambulation. Will hold on heparin for now as the patient is now mobilized, recommend SCDs for the lower extremities and mobilization with physical therapy. Subjective . Active Problems: S/p ACDF C4-7 POD 5 64y/o female s/p ACDF C4-7. Doing well overall, pain managed and improved function. Yesterday afternoon patient was having significant decreased bilateral lower extremity motion, see previous note. This morning patient is actively moving her toes and ankle, and with repositioning in bed can also flex and extend bilateral hips but is weak against gravity. Repeat MRI cervical spine obtained yesterday, no central cord compression to necessitate further invasive procedure. Patient was able to stand and pivot with PT/OT, and was sitting in chair at time of exam this morning. Patient notes pain in her neck and bilateral shoulders, but otherwise denies pain in her bilateral lower extremity, or tingling/numbness. Review of Systems All systems reviewed & are unremarkable except as noted in HPI & below. Physical Exam * Musculoskeletal: Surgical dressing CDI. Soft collar in place. Cervical spine region without obvious deformity or overlying skin changes. Minimal tenderness of surgical region, otherwise no tenderness b/l buttock or LE. AROM cervical rotation with minimal pain. AROM bilateral upper extremity intact. AROM b/l hip flexion, knee flexion/extension, ankle flexion/extension intact. Sensation intact plantar/dorsal foot. Brisk capillary refill. Results & Data Results & Data Laboratory Results . Diagnostic Findings . Cervical Spine MRI 06/30/25 13:16 MR cervical spine wo con HISTORY: 64 years-old Female leg weakness s/p surgery chronic neck pain with leg weakness COMPARISON: MRI cervical spine 06/25/2025, fluoroscopic images of the cervical spine 06/26/2025, CTA neck 06/25/2025 TECHNIQUE: Multiplanar multisequence MRI of the cervical spine was obtained without IV contrast FINDINGS: Study is mildly motion degraded. Interval postoperative changes of the cervical spine compared to the prior MRI with anterior plate and screw fusion and discectomy at C4-C7. Prevertebral edema and fluid collection is greatest at C2- C4 measuring up to 2.5 x 0.8 x 4.5 cm. No definite epidural fluid collections are seen. Numerous bilateral trace facet effusions. Layering pleural effusions, left right. Edema is noted within the supraclavicular tissues with fluid collection/possible hematoma within the left neck/radiopaque esophageal recess on image 11 series 6 measuring up to 2.6 cm. No acute fracture, subluxation, endplate erosion or significant bone marrow edema. Subcentimeter foci of increased T2 signal within the cervical spinal cord at C5-C6 again noted, likely representing myelomalacia. C2-C3: Small posterior annular disc bulge with [id number] facet arthrosis. The central canal and left neural foramen are patent. There is unchanged mild right neural foraminal narrowing. C3-C4: Uncovertebral hypertrophy with tiny posterior annular disc bulge. Severe left-sided facet arthrosis. Minimal central canal stenosis, AP dimension of the thecal sac measuring 9 mm. Mild bilateral neural foraminal narrowing is unchanged. C4-C5: Moderate to severe facet arthrosis. Uncovertebral hypertrophy with interval discectomy. AP dimension of the thecal sac measures 7 mm, previously 6 mm. Mild to moderate central canal stenosis. Right neural foramen is patent. There is unchanged mild left neural foraminal narrowing. C5-C6: Moderate facet arthrosis. Uncovertebral hypertrophy with interval discectomy. AP dimension of the thecal sac measures 8 mm, previously 6 mm. Mild central canal stenosis. Moderate right with mild left neural foraminal narrowing is unchanged. C6-C7: Moderate facet arthrosis. Uncovertebral hypertrophy with central discectomy. AP dimension of the thecal sac measures 7 mm, previously 6 mm. Slip-co-rkrkclux central canal stenosis. Moderate bilateral foraminal narrowing is unchanged. C7-T1: Moderate facet arthrosis. No central canal or neural foraminal narrowing. IMPRESSION: 1. Motion degraded study. 2. Interval postoperative changes of discectomy with anterior plate and screw fusion at C4-C7. 3. There is improved central canal stenosis at several levels with persistent multilevel neural foraminal narrowing. 4. Postoperative prevertebral edema and fluid collection with possible hematoma within the left neck/tracheoesophageal recess at the level of the cervicothoracic junction. Follow-up CT soft tissue neck with IV contrast recommended. 5. Probable myelomalacia of the cervical spinal cord again noted at the level of C5-C6. ACT 112: Negative or not required by law. The above report was generated using voice recognition software. It may contain grammatical, syntax or spelling errors. Electronically signed by: Adilson Saab M.D. 06/30/2025 3:39 PM PG Care Time/CCT Total # of Minutes Spent Total Time Spent with Patient: Total time spent is greater than 50% in coordination of care (as documented) at patient's floor/unit and/or counseling patient: Coding Level of Care Code 68561 Post Operative Follow-Up Diagnoses Cervical stenosis of spine M48.02 Lower extremity weakness R29.898 Lumbar stenosis M48.061 Cervical cord myelomalacia G95.89
--- NOTE | 2025-07-01 13:56 | Hospitalist Progress Note ---
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 She has experienced this multiple times over the past few months and it seems she has not sought medical attention with most recent episode being in the morning prior to arrival to ED. No arm weakness, numbness, tingling, lightheadedness, vision change. No fevers, chills, chest pain, shortness of breath, recent illness, abdominal pain, diarrhea or other symptoms. No trauma. Noted to be retaining 800 cc of urine in ED Ridley placed. ##S/P ACDF C4-7 (06/27/25) Bilateral lower extremity and head and neck weakness ruled out cord compression, ruled out Nita Bates (Although the latter would be an ascending process), cervical cord myelomalacia, lower ext. weakness. -patient with bilateral lower ext weakness, patient with cyclical movement and lack of movement in bilateral lower ext since arrival to hospital -Neurochecks -supportive care per ortho spine surgery -no ABLA with stable H/H -CTA head and neck with moderate stenosis internal carotid and basilar -TFTs WNL -Lyme screen neg, tick panel pending -B12/folate WNL -MRI brain with no acute intracranial findings -[facility] MRI Spine with critical cervical and lumbar stenosis -Postoperative supportive care -afebrile -ortho re-evaluated patient in setting of decreased MS to lower legs on 06/30/25 with repeat MRI of c-spine revelaing post op prevertebral edema and fluid collection with possible hematoma at cervicothoracic junction->f/u CT soft tissue neck with IV contrast recommended, per ortho will cont to monitor possible hematoma development without pursuance of imaging at this time will discontinue Heparin SQ in setting of possible hematoma evolvement -case discussed with Dr. Khan on 06/30/25 and no clear indication for LP at this time ##hypokalemia (resolved) -K 3.8 ##Urinary retention with noted retention >800ml during presentation to ED on 06/25/25 -d/c Ridley with voiding trial and PVRs ##Diabetes -BSG ACHS with pharm consult, low dose basal at hs per pharmacy -now tolerated diabetic diet and eating at least 50% of meals -able to add on basal insulin at hs with D5NS Maintenance fluids -BSG review without hypoglycemia, AG 9 this am -d/c D5NS as patient now consuming diet ##Hypothyroidism -Levothyroxine ##Hypertension -cont amlodipine, Cozaar ##hyperlipidemia -CTA neck wtih 50% stenosis of the mid basilar artery -Crestor ##History epilepsy -clobazam DVT prophylaxis: D/C Heparin, SCDs Diet: Diabetic diet Disposition: possible transfer to [facility] tomorrow am Admission and Anticipated Discharge Date Admission Date: June 25, 2025 Subjective Patient sitting up at the bedside this am starting to engage with PT. She is more awake then she has been. Oriented times three. Observed having some reluctancy with standing up even with assistance. Required verbal encouragement with notable frustration. Able to stand with 2 assist and support self with walker. Feet firmly planted on floor with appreciation of BL lower leg movement. Transitioned to chair. Still c/o some throat discomfort when she swallows. Denies dysphagia, SOB. C/o posterior neck discomfort. Encouraged to wear soft collar. Appetite improving with advancement of diet. Re-initiation of basal insulin at hs with D5NS maintenance fluids. She has no hypoglycemic episodes. Review of Systems Review of Systems: All systems reviewed & are unremarkable except as noted in Subjective Physical Exam Physical Exam: GENERAL APPEARANCE: A&O. Sitting up in bed. NAD. SKIN: Normal color without rashes or lesions.Normal turgor. HEENT: Head AT/NC. Buccal mucosa is moist and pink. NECK: Left sided neck incision with steri-strips present-mild surrounding soft swelling to left neck area. HEART: RRR without m/g/r. LUNGS: Normal inspiratory effort. CTA without w/r/r. No stridor with auscultation of neck. ABDOMEN: No guarding or rigidity. Normoactive BS in all four quadrants. Abdomen soft and NT. MSK: No bony gross/deformities throughout. ROM intact X 4 extremities. EXTREMITIES: No edema, No peripheral cyanosis. 4+ MS in lower extremities. BL hip flexion, dorsiflexion/plantar flexion of bilateral feet. Neuro: CN 2-12 grossly intact. No focal neuro deficits. No babinski. PSYCHIATRIC: Normal affect. Eye contact is good. Speech is normal rate and content. Responses are appropriate. Results & Data Results & Data Vital Signs (Past 12 Hours) Vital Signs Temp Pulse Resp BP Pulse Ox O2 Del Method 07/01/25 07:41 37.2 C 85 16 165/90 H 95 Room Air Laboratory Results Labs reviewed: BMP, POC glucoses PG Care Time/CCT Total # of Minutes Spent Total Time Spent with Patient: Total time spent is greater than 50% in coordination of care (as documented) at patient's floor/unit and/or counseling patient: Coding Level of Care Code 79544 SUB INP/OBS CARE 235MIN Diagnoses Type 1 diabetes mellitus without complication E10.9 Diabetes mellitus complication status: without complication Mixed hyperlipidemia E78.2 Hyperlipidemia type: mixed hyperlipidemia Postoperative hypothyroidism E89.0 Hypothyroidism type: postoperative Weakness R53.1 (1) Type 1 diabetes mellitus Diabetes mellitus complication status: without complication Qualified Code(s): E10.9 - Type 1 diabetes mellitus without complications (2) Hyperlipidemia Hyperlipidemia type: mixed hyperlipidemia Qualified Code(s): E78.2 - Mixed hyperlipidemia (3) Hypothyroidism Hypothyroidism type: postoperative Qualified Code(s): E89.0 - Postprocedural hypothyroidism
[2025-07-01] MEDS: LANTUS PER UNIT CHARGE SC SCH (21:39)
[2025-07-02 07:20] VITALS: RESP 16
[2025-07-02 10:39] LABS: Hematocrit (blood only) 34.1 % (37.0-47.0); Hemoglobin 12.2 g/dL (12.0-16.0); Mean Corpuscular Hemoglobin 31.4 pg (25.0-34.0); Mean Corpuscular Volume 87.7 fL (80.0-100.0); Platelet Count 180 K/uL (130-400); RDW Standard Deviation 41.7 fL (36.4-46.3); Red Blood Count 3.89 M/uL (4.20-5.40); White Blood Count 3.94 K/ul (4.8-10.8)
[2025-07-02 10:54] LABS: Anion Gap 9.0 (3-11); Blood Urea Nitrogen 15.0 mg/dl (6-23); Calcium 8.8 mg/dl (8.6-10.3); Carbon Dioxide 27.0 mmol/L (21-32); Chloride 101.0 mmol/L (98-107); Creatinine Clr Calc Pharmacy 50.4 ml/min; Glucose 107.0 mg/dl (70-99(Fasting)); Potassium 4.0 mmol/L (3.5-5.1); Sodium 137.0 mmol/L (136-145)
[2025-07-02 11:34] LABS: ALC (manual) 3.07 K/uL (1.2-3.4); ANC (manual) 0.55 K/uL (1.4-6.5); Large Granular Lymph # (manua 0.91 K/uL; Large Granular Lymph % (manual) 23 %; RBC Morphology Unremarkable
--- NOTE | 2025-07-02 13:13 | Pharmacy Report ---
Pharmacy Glycemic Short Note 2 - Date of Service July 02, 2025 - Glycemic Short BSG Results (Last 24 hours): 07/01/25 07/01/25 07/02/25 16:30 20:27 07:20 Glucose POC Glucose 96 220 H 94 07/02/25 07/02/25 10:22 11:42 Glucose 107 H POC Glucose 101 H OUTPATIENT ANTIDIABETIC REGIMEN: * Omnipod Insulin pump * Basal 0.3units/hr * Bolus CF 100, CR 30 * TDD ~15units/day ASSESSMENT: 07/02 * Patient received total of 14 units yesterday, of which 6 units were basal insulin * Fasting BSG 94 mg/dL - PO intake had improved yesterday, but so far today no PO intake documented * Will adjust PM Lantus scale slightly 07/01 * Patient received total of 7 units of insulin yesterday, of which 6 units were basal * Fasting BSG 133 mg/dL - will continue with basal at HS time * No change to CF/CR today. Continues with IV dextrose fluids d/t poor PO intake. 06/30 * Patient has not received any insulin in last 24 hours - basal held last evening due to hypoglycemia - BSG 69 mg/dL * Blood sugars stable today, despite held basal dose. Will continue with scale for Lantus at HS time. * Contacted provider as patient with no PO intake last couple of days, AG trending up and +ketones in urine - plan to start dextrose fluids so insulin can be continued as patient type 1 diabetic 06/29 * Lexus received only 3 units of SC insulin yesterday (Lantus 3 units at bedtime). * Fasting BSG lower than previous days (74 mg/dL) but trending up at lunchtime. Will scale HS basal dose. 06/28 * Patient received total of 8 units of insulin yesterday, of which 6 units were basal insulin. Had held PM basal insulin last evening (had been dose to make up from day prior). * BSG stable this AM 88 mg/dL - will assess how patient is feeling today/eating and plan to add on basal later this morning 06/27 * POD1 spinal surgery last evening. Patient missed HS basal dose d/t being in OR and also received IV Dexamethasone resulting in hyperglycemia this morning, BG 233mg/dl. * Will give basal dose now to make up for missed dose and cover steroids, and resume normal dose tonight, unless patient brings in pump supplies, then pump may be resumed this evening. 06/26 * 64 yo F, PMH T2DM, CVA, Hypothyroidism, HTN, HL, CKD Right-sided craniotomy/lobotom, with complaints weakness of legs, head, neck with inability to support herself. * Patient does not have insulin pump supplies, so using basal bolus insulin similar to her pump settings while inpatient. PLAN FOR INPATIENT GLYCEMIC CONTROL: * Hold outpatient insulin pump * Basal insulin * Lantus SC qHS 4-6 units * Bolus insulin * NovoLog per scale ACHS or Q6hrs while NPO * Goal Range: Low 110 mg/dL - High 140 mg/dL * Correction Factor: 100 mg/dL/unit * Nutritional / Prandial insulin per carb ratio of 1 unit per 30 grams CHO c onsumed
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
[2025-07-02 21:41] VITALS: O2SAT 98
[2025-07-03 07:09] VITALS: BP 160/78; PULSE 77; TEMP 98.2
[2025-07-03 11:58] LABS: Hematocrit (blood only) 34.5 % (37.0-47.0); Hemoglobin 12.3 g/dL (12.0-16.0); Immature Granulocytes # (auto) 0.01 K/uL (0.01-0.20); Immature Granulocytes % (auto) 0.3 %; Mean Corpuscular Hemoglobin 31.4 pg (25.0-34.0); Mean Corpuscular Volume 88.0 fL (80.0-100.0); Platelet Count 180 K/uL (130-400); RDW Standard Deviation 40.8 fL (36.4-46.3); Red Blood Count 3.92 M/uL (4.20-5.40); White Blood Count 3.92 K/ul (4.8-10.8)
[2025-07-03 12:14] LABS: Alanine Aminotransferase 14.0 U/L (7-52); Albumin Globulin Ratio 1.0 (0.9-2); Albumin Level 3.6 gm/dl (3.4-5.0); Alkaline Phosphatase 80.0 U/L (34-104); Anion Gap 8.0 (3-11); Bilirubin,Total 0.5 mg/dl (0.2-1.0); Blood Urea Nitrogen 13.0 mg/dl (6-23); Calcium 8.9 mg/dl (8.6-10.3); Carbon Dioxide 30.0 mmol/L (21-32); Chloride 95.0 mmol/L (98-107); Creatinine Clr Calc Pharmacy 46.5 ml/min; Globulin 3.5 gm/dl (2.5-4.0); Glucose 195.0 mg/dl (70-99(Fasting)); Potassium 3.6 mmol/L (3.5-5.1); Sodium 133.0 mmol/L (136-145); Total Protein 7.1 gm/dl (6.0-8.3)
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
== END 2025-07-03 02:35 | DRG 472 ==
LOC: ED 13:09 → SUATTDRO 15:43 → 2S 15:43 → 2E 06-26 18:26 → 3E 06-27 00:54